=== PATIENT | female | born 1960 | race Caucasian/White ===

== ENCOUNTER → 2017-12-30 09:36 | Outpatient (CLI) | payer BC, SELFPAY ==
[2017-12-30 11:08] LABS: Add Manual Diff / Slide Review NO; Basophils Percent Auto 0.7 % (0-2); Eosinophils Percent Auto 2.5 % (2-4); Hematocrit 38.4 % (36-46); Lymphocytes Percent Auto 35.1 % (25-40); Mean Corpuscular HGB Conc 33.8 % (30-36); Mean Corpuscular Hemoglobin 31.7 PG (26-34); Mean Corpuscular Volume 93.8 fL (80-100); Neutrophils Absolute Auto 2000 /uL (3000-5900); Neutrophils Percent Auto 54.7 % (50-75); Platelet Count 223 X10^3/uL (150-400); Red Blood Cell Count 4.09 X10^6/uL (4.0-5.2); White Blood Cell Count 3.6 X10^3/uL (4.5-11.0)
[2017-12-30 11:15] LABS: Alanine Aminotransferase 23 IU/L (9-52); Albumin 4.5 g/dL (3.5-5.0); Albumin Globulin Ratio 1.6 (1.0-2.8); Alkaline Phosphatase 58 U/L (38-126); Aspartate Aminotransferase 23 IU/L (14-36); BUN Creatinine Ratio 13.8 (6-22); Bilirubin Total 0.8 mg/dL (0.2-1.3); Blood Urea Nitrogen 11 mg/dL (7-17); Calcium 9.5 mg/dL (8.4-10.2); Carbon Dioxide 30 mmol/L (22-32); Chloride 100 mmol/L (98-107); Cholesterol 228 mg/dL (140-199); Estimated Glomerular Filt Rate > 60.0 mL/min (>60); Globulin 2.8 g/dL (1.7-4.1); Glucose 94 mg/dL (70-100); HDL Cholesterol 88 mg/dL (40-60); HEMOLYSIS < 15 (0-50); LDL Cholesterol Calculated 131 mg/dL (<100); Potassium 4.1 mmol/L (3.4-5.1); Sodium 138 mmol/L (137-145); Total Protein 7.3 g/dL (6.3-8.2); Triglycerides 43 mg/dL (35-150)
[2017-12-30 11:47] LABS: TSH w/ Reflex to FT4 2.14 uIU/mL (0.47-4.68)
== END ==
PROVIDERS: Visit Provider Family Medicine
DX: D64.9 Anemia, unspecified (principal); Z13.1 Encounter for screening for diabetes mellitus; Z13.220 Encounter for screening for lipoid disorders; E03.9 Hypothyroidism, unspecified
CPT/HCPCS: 36415; 80053; 80061; 84443; 85025

== ENCOUNTER → 2018-10-06 12:34 | Outpatient (CLI) | payer BC, SELFPAY ==
[2018-10-08 19:47] LABS: ANA Screen, IFA Positive (Negative)
== END ==
PROVIDERS: Visit Provider Dermatology
DX: K13.0 Diseases of lips (principal)
CPT/HCPCS: 36415; 86038; 86235

== ENCOUNTER → 2018-10-29 12:09 | Outpatient (CLI) | payer BC, SELFPAY ==
--- NOTE | 2018-10-29 | DI.MG.S_ITS ---
BILATERAL DIGITAL SCREENING MAMMOGRAM 3D/2D WITH CAD: 10/29/2018 CLINICAL: Routine screening. Comparison is made to exams dated: 01/19/2014 mammogram, 01/08/2013 mammogram, and 01/16/2012 mammogram - [facility]. The tissue of both breasts is heterogeneously dense. This may lower the sensitivity of mammography. Current study was also evaluated with a Computer Aided Detection (CAD) system. No significant masses, calcifications, or other findings are seen in either breast. There has been no significant interval change. IMPRESSION: NEGATIVE There is no mammographic evidence of malignancy. A 1 year screening mammogram is recommended. This exam was interpreted at Station ID: [id number]. NOTE: For mammograms, a report in lay terms will be sent to the patient. Approximately 15% of breast malignancies will not be visualized mammographically. In the management of a palpable breast mass, a negative mammogram must not discourage biopsy of a clinically suspicious lesion. Electronically Signed By: Victor Hugo moore/nick:10/31/2018 06:40:18 letter sent: Normal Exam ACR BI-RADS Category 1: Negative [id number]
== END ==
PROVIDERS: Visit Provider Nurse Practitioner Family
DX: Z12.31 Encounter for screening mammogram for malignant neoplasm of breast (principal)
CPT/HCPCS: 77063; 77067

== ENCOUNTER 2019-04-05 11:28 | Emergency (ER) | payer BC, SELFPAY ==
[2019-04-05 11:55] VITALS: BP 110/70; PULSE 56; RESP 18; TEMP 36.9; O2SAT 100; BMI 21.6
--- NOTE | 2019-04-05 13:48 | ED_ITS ---
HPI - Wound/Laceration <JUWAN Longoria - Last Filed: 04/05/19 17:09> General Chief Complaint: Wound/Laceration Stated Complaint: cut finger, was on antibiotics, possible infection Time Seen by Provider: 04/05/19 13:24 Source: patient Mode of arrival: Ambulatory Limitations: no limitations History of Present Illness HPI narrative: The patient is a 59-year-old female nonsmoker with history of GERD who presents with a chief complain hand laceration. She states that this happened 9 days ago. She was concerned about infection so she saw her primary care provider who placed her on Bactroban ointment. She presents that she has some diffuse redness around her cut this morning and was concerned about infection. She denies any drainage can of fever nausea vomiting diarrhea decreased movement etc. She has not taken anything for pain. She states that her tetanus was 2 years ago so it is up-to-date. She states the initial injury was with a paring knife. She did not get evaluated to 4-5 days after the injury. Related Data Home Medications Medication Instructions Recorded Confirmed gabapentin BID #0 05/20/17 02/25/18 omega 3-zsr-csv-fish oil [Fish Oil] 1,000 mg PO #0 05/20/17 02/25/18 estradiol 0.05 mg/24 hr weekly See Rx Instructions TRANSDERMAL 12/30/17 02/25/18 transdermal patch 2XW each omeprazole 20 mg tablet,delayed 20 mg PO DAILY 12/30/17 02/25/18 release progesterone micronized 200 mg 200 mg PO BEDTIME #0 cap 12/30/17 02/25/18 capsule Previous Rx's Medication Instructions Recorded levothyroxine 50 mcg tablet 50 mcg PO QAM #30 tab 03/10/18 escitalopram oxalate 10 mg tablet 15 mg PO DAILY #45 tab 12/22/18 Allergies Allergy/AdvReac Type Severity Reaction Status Date / Time succinylcholine Allergy Unknown Verified 02/25/18 08:36 [SUCCINYLCHOLINE] Review of Systems <JUWAN Longoria - Last Filed: 04/05/19 17:09> Review of Systems Narrative: GENERAL: Denies chills, fatigue, malaise, fever, sweats. HEENT: Denies sinus pain, ear pain, sore throat, difficulty swallowing, dizziness. RESPIRATORY: Denies dyspnea, cough, wheezing, hemoptysis, sputum. CARDIOVASCULAR: Denies chest pain, palpitations, orthopnea, edema, GASTROINTESTINAL: Denies nausea, vomiting, abdominal pain, diarrhea, constipation, melena. : Denies dysuria, frequency, incontinence, hematuria, urinary retention. MUSCULOSKELETAL: See HPI SKIN: See HPI NEUROLOGIC: Denies weakness, headache, numbness, change in speech, confusion, seizures, incoordination. PSYCHIATRIC: No concerning psychosocial issues. 12 point review of systems is negative except for those stated above Patient History <JUWAN Longoria - Last Filed: 04/05/19 17:09> Medical History Abnormal Pap smear of cervix (Chronic ~1992) Anemia (Chronic ~1992) Carpal tunnel syndrome (Chronic ~2012) Chicken pox (Resolved) Chlamydia (Chronic ~1991) Chronic back pain (Chronic ~1991) Depression (Chronic ~2009) Fibroids (Chronic ~2004) GERD (gastroesophageal reflux disease) (Chronic ~1999) Hypothyroidism (Chronic ~2005) Measles (Resolved) Mumps (Resolved) Shoulder pain (Chronic ~2002) Substance abuse (Chronic ~2016) Surgical History Anesthesia (Resolved) History of carpal tunnel release (Resolved ~2015) History of carpal tunnel release (Resolved ~2012) History of knee surgery (Resolved ~2013) History of knee surgery (Resolved ~2010) History of knee surgery (Resolved ~1996) History of reconstruction of anterior cruciate ligament tear (Resolved ~1994) History of tonsillectomy (Resolved ~1989) Status post trigger finger release (Resolved ~08/2017) Surgical procedure planned (Resolved ~2014) Surgical procedure planned (Resolved ~2013) Surgical procedure planned (Resolved ~1999) Family History Father Cancer Hypertension Skin cancer Alcoholism Mother Mental health problem Osteoporosis Depression Brother Alcoholism Stroke Brother Rheumatoid arthritis Sister Obesity Sister Alcoholism Sister Osteoarthritis Sister Ulcerative colitis Osteoporosis Arthritis Grandfather Alcoholism Grandfather Lung cancer Social History marital status: number of children: 0 household members: spouse education level: college 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 HEAD: Atraumatic. Normocephalic. No temporal or scalp tenderness. EYES: Pupils equal round and reactive. Extraocular motions intact. No scleral icterus. No injection or drainage. ENT: Nose without bleeding, purulent drainage or septal hematoma. Throat without erythema, tonsillar hypertrophy or exudate. Uvula midline. Airway patent. NECK: Trachea midline. No JVD or lymphadenopathy. Supple, nontender, no meningeal signs. CARDIOVASCULAR: Regular rate and rhythm RESPIRATORY: No cough. No increased respiratory effort. No accessory muscle use. EXTREMITIES: Patient is able to flex and instead left index finger fully. Capillary refill less than 2 seconds. NEURO: AOx3. SKIN: 1 cm healing laceration on dorsal aspect of left index finger over MCP joint well-approximated. Linear. Healing well. No extending erythema. No drainage noted. Initial Vital Signs Initial Vital Signs: Vital Signs Temperature 98.4 F 04/05/19 11:55 Pulse Rate 56 L 04/05/19 11:55 Respiratory Rate 18 04/05/19 11:55 Blood Pressure 110/70 04/05/19 11:55 Pulse Oximetry 100 04/05/19 11:55 <Frankie Arango DO - Last Filed: 04/05/19 19:22> Initial Vital Signs Initial Vital Signs: Vital Signs Temperature 98.4 F 04/05/19 11:55 Pulse Rate 56 L 04/05/19 11:55 Respiratory Rate 18 04/05/19 11:55 Blood Pressure 110/70 04/05/19 11:55 Pulse Oximetry 100 04/05/19 11:55 Course <JUWAN Longoria - Last Filed: 04/05/19 17:09> Vital Signs Vital signs: Vital Signs - 8 hr 04/05/19 11:55 04/05/19 13:50 Temperature 98.4 F Pulse Rate 56 L 56 L Respiratory Rate 18 14 Blood Pressure 110/70 Pulse Oximetry 100 98 <Frankie Arango DO - Last Filed: 04/05/19 19:22> Vital Signs Vital signs: Vital Signs - 8 hr 04/05/19 11:55 04/05/19 13:50 Temperature 98.4 F Pulse Rate 56 L 56 L Respiratory Rate 18 14 Blood Pressure 110/70 Pulse Oximetry 100 98 MDM - Wound/Laceration <Ca HyltonCAMILA-BC - Last Filed: 04/05/19 17:09> MDM Narrative Medical decision making narrative: The patient is a 59-year-old female who presents with a chief complaint of a laceration to her left index finger. Happened 9 days ago and she has seen her primary care provider since. She has been using the antibiotic ointment as discussed with her PCP, but she is concerned about infection. Her exam is overall normal today, no concerning spreading erythema or drainage noted. She is neurovascularly intact. Encouraged rest ice compression elevation as well as [id number] pain medications as needed and able. Encouraged the patient to maintain follow-up with PCP as scheduled on Saturday. I did offer to do a wound culture, which the patient declined. She also states she was recently on a course of Cipro, does not want to take oral antibiotics unless absolutely necessary. I do not think she needs these at this time as I do not see any evidence of infection. She also denies any signs of systemic infection, is afebrile in the emergency department. Patient states understanding of watching for signs of infection and following up with PCP. Patient has no questions or concerns upon discharge and states understanding of return precautions as well as follow-up care. Discharge Plan Departure Patient Disposition: Home Clinical Impression: Laceration Discharge Date/Time: 04/05/19 13:50 Instructions: How to Care for a Laceration After Repair, DI for Minor Laceration Activity Restrictions/Additional Instructions: Your laceration looks like it is healing well today. Please keep it clean and dry. I suggest continuing to use the medication given to her by her primary care provider. Please use rest ice compression elevation as well as [id number] pain medications as needed and able. Please monitor for signs of wound infection such as drainage, fever, extending redness from the wound. Prescriptions: No Action omega 6-vnv-sof-fish oil [Fish Oil] 1,000 MG capsule 1,000 mg PO Qty: 0 RF: 0 gabapentin 100 MG capsule BID Qty: 0 RF: 0 levothyroxine [Synthroid] 50 mcg tablet 50 mcg PO QAM Qty: 30 RF: 1 escitalopram oxalate [Lexapro] 10 mg tablet 15 mg PO DAILY Qty: 45 RF: 5 omeprazole 20 mg tablet,delayed release (DR/EC) 20 mg PO DAILY RF: 0 progesterone micronized 200 mg capsule 200 mg PO BEDTIME Qty: 0 RF: 0 estradiol [Estradiol Transdermal Patch] 0.05 mg/24 hr patch weekly See Rx Instructions Transdermal 2XW RF: 0
[2019-04-05 13:50] VITALS: PULSE 56; RESP 14; O2SAT 98
== END 2019-04-05 13:50 | disposition home or self-care (01) ==
PROVIDERS: Emergency Provider Nurse Practitioner Family
DX: S61.211D Laceration without foreign body of left index finger without damage to nail, subsequent encounter (principal)
CPT/HCPCS: 99282; 99283

== ENCOUNTER → 2019-06-17 08:37 | Outpatient (CLI) | payer BC, SELFPAY ==
--- NOTE | 2019-06-17 | DI.RAD.S_ITS ---
PROCEDURE: FL KNEE INJECTION MR/CT LT COMPARISON: None. INDICATIONS: INTERNAL DERANGEMENT OF LEFT KNEE, suspect medial meniscal tear. FINDINGS: After obtaining informed consent the medial border of the left knee was prepared and draped in sterile fashion and anesthetized with 1% lidocaine. Utilizing sequential fluoroscopic guidance positioning of the needle tip was confirmed to be within the knee joint space from the medial approach, utilizing a small amount of water soluble non-ionic contrast injection. Thereafter standard quantity of nonbacteriostatic sterile saline with gadolinium was instilled, for MR arthrography. IMPRESSION: Successful left knee joint injection for MR arthrography. Dictated by: Vicente Hickman M.D. on 06/17/2019 at 10:10 Approved by: Vicente Hickman M.D. on 06/17/2019 at 10:13
--- NOTE | 2019-06-17 | DI.MRI.S_ITS ---
PROCEDURE: MR KNEE LT W CON INDICATIONS: INTERNAL DERANGEMENT OF LEFT KNEE TECHNIQUE: After the administration of 50 mL of dilute intra-articular Gadolinium contrast, sagittal T1 spin echo with fat saturation and PD fast spin echo with fat saturation, coronal T1 spin echo with and without fat saturation, coronal T2 fast spin echo with fat saturation, axial PD fast spin echo with fat saturation through the knee. COMPARISON: None. FINDINGS: Image quality: Excellent. Menisci: Ill-defined macerated tear of the body and posterior horn of the medial meniscus. Lateral meniscus intact. Cruciate ligaments: Status post ACL reconstruction. There is heterogeneous poorly defined appearance of the graft suggestive of partial rupture or sprain, technically age-indeterminate Posterior cruciate ligament appears intact. Medial structures: The medial collateral ligament appears intact. Semimembranosus tendon appears intact. Visualized portions of the pes anserinus tendons appear normal. No abnormal bursal fluid. Lateral structures: The lateral collateral ligament intact. Biceps femoris tendon appears intact. Popliteus tendon grossly unremarkable. Iliotibial band appears intact. Anterior structures: Quadriceps tendon intact. Medial and lateral patellofemoral ligaments intact. Patellar tendon appears intact. Hoffa's fat pad unremarkable. Bones and cartilage: No focal marrow contusion or discrete low signal fracture line. Within the medial compartment, diffuse mild partial-thickness loss of the femoral and tibial articular cartilage Within the lateral compartment, diffuse mild partial-thickness loss of the femoral and tibial articular cartilage Within the patellofemoral compartment, fissuring of the median patellar ridge. Joint space: Small 2 cm Carter's cyst. No specific evidence of intra-articular loose body. IMPRESSION: Status post ACL reconstruction although heterogeneous appearance of the graft raising possibility of partial rupture or sprain. Recommend correlation with clinical exam findings. Medial meniscal tear involving the body and posterior horn Tricompartmental degenerative joint disease. Small Carter cyst Dictated by: Bryn Dias M.D. on 06/17/2019 at 11:40 Approved by: Bryn Dias M.D. on 06/17/2019 at 17:19
== END ==
PROVIDERS: Family Provider Physical Therapist; PCP Nurse Practitioner Family; Visit Provider Orthopaedic Surgery
DX: S83.242A Other tear of medial meniscus, current injury, left knee, initial encounter (principal); M71.22 Synovial cyst of popliteal space [Baker], left knee; M17.12 Unilateral primary osteoarthritis, left knee
CPT/HCPCS: 27369; 73722; 77002

== ENCOUNTER → 2019-12-23 13:59 | Outpatient (CLI) | payer BC, SELFPAY | PROVIDERS: Family Provider Physical Therapist; PCP Nurse Practitioner Family; Visit Provider Physician Assistant | DX: R39.15 Urgency of urination (principal) | CPT/HCPCS: 87077; 87086; 87186 ==

== ENCOUNTER 2020-02-28 08:00 | Emergency (ER) | payer BC, SELFPAY ==
[2020-02-28] VITALS (11 sets, daily range): BP systolic 95–128; BP diastolic 50–59; PULSE 50–78; RESP 15; TEMP 36–39.6; O2SAT 95–99; BMI 22.1
--- NOTE | 2020-02-28 08:15 | ED_ITS ---
HPI - Abdominal Pain General Chief Complaint: Fever Stated Complaint: high temperature (104), abdominal pain Time Seen by Provider: 02/28/20 08:03 Source: patient Mode of arrival: Ambulatory Limitations: no limitations History of Present Illness HPI narrative: 60-year-old female comes emergency department with complaint 4 days and 3 days right-sided abdominal and back pain. Patient states she has had a mild headache. She denies any nasal congestion, cough, difficulties with breathing or chest pain. She has been nauseated but had any vomiting. She has been restricting her fluid intake somewhat. She states that the pain started in the right lower abdomen flank area and she thought it maybe cramping which she gets intermittently. She has not had any diarrhea or constipation. She has had normal bowel movements. She denies any vaginal bleeding or discharge. She has not had any frequency, dysuria or urgency. She states she has had some decrease in urine output but relates this to having decreased fluid intake. She has had multiple orthopedic surgeries including excision of her pubic symphysis but denies any intra-abdominal surgeries. She takes the generic version of Lexapro and Synthroid. 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 She follows with Dr. Phyllis Limon for her pcp. Related Data Home Medications Medication Instructions Recorded Confirmed gabapentin BID #0 05/20/17 12/23/19 omega 0-nez-usl-fish oil [Fish Oil] 1,000 mg PO #0 05/20/17 12/23/19 omeprazole 20 mg tablet,delayed 20 mg PO DAILY 12/30/17 12/23/19 release Previous Rx's Medication Instructions Recorded levothyroxine 50 mcg tablet 50 mcg PO QAM #30 tab 03/10/18 escitalopram oxalate 10 mg tablet 15 mg PO DAILY #45 tab 12/22/18 hydrocodone-acetaminophen [[place]] 2 tab PO Q8H PRN #10 tab 02/28/20 levofloxacin 500 mg PO Q24H 14 Days #14 tab 02/28/20 ondansetron HCl [Zofran] 4 mg PO Q6H PRN #10 tab 02/28/20 Allergies Allergy/AdvReac Type Severity Reaction Status Date / Time succinylcholine Allergy Unknown Verified 02/28/20 08:23 [SUCCINYLCHOLINE] Review of Systems Review of Systems ROS Unobtainable: All systems reviewed & are unremarkable except as noted in HPI and below Constitutional Constitutional: Reports chills, Reports fever(s), Reports headache(s) and Denies weakness ENT Ears, Nose, Mouth, and Throat: Denies dizziness, Reports headache(s), Denies nasal congestion, Denies nasal discharge, Denies neck pain, Denies sinus pain and Denies sore throat Cardiovascular Cardiovascular: Denies chest pain, Denies lightheadedness and Denies dyspnea Respiratory Respiratory: Denies chest congestion, Denies cough, Denies excessive phlegm production and Denies dyspnea Gastrointestinal Gastrointestinal: Reports abdominal pain, Denies melena, Denies bloating, Denies hematochezia, Denies change in bowel habits, Denies constipation, Denies diarrhea, Denies loose stools, Reports nausea and Denies vomiting Genitourinary Genitourinary: Reports oliguria, Denies dysuria, Denies dysuria, Reports flank pain, Denies urinary frequency, Denies urinary hesitancy and Denies urinary urgency Genitourinary: Denies urinary frequency, Denies dysuria, Denies dysuria, Reports flank pain, Denies urinary hesitancy, Denies urinary urgency and Denies vaginal discharge Comments: No vaginal bleeding Musculoskeletal Musculoskeletal: Reports back pain (Right side) and Denies neck pain Integumentary/Breasts Skin/Breast: Denies rash Neurologic Neurologic: Denies confusion, Denies dizziness, Reports headache(s) and Denies weakness Psychiatric Psychiatric: Denies confusion Patient History Medical History Abnormal Pap smear of cervix (Chronic ~1992) Anemia (Chronic ~1992) Carpal tunnel syndrome (Chronic ~2012) Chicken pox (Resolved) Chlamydia (Chronic ~1991) Chronic back pain (Chronic ~1991) Depression (Chronic ~2009) Fibroids (Chronic ~2004) GERD (gastroesophageal reflux disease) (Chronic ~1999) Hypothyroidism (Chronic ~2005) Measles (Resolved) Mumps (Resolved) Shoulder pain (Chronic ~2002) Substance abuse (Chronic ~2016) Surgical History Anesthesia (Resolved) History of carpal tunnel release (Resolved ~2015) History of carpal tunnel release (Resolved ~2012) History of knee surgery (Resolved ~2013) History of knee surgery (Resolved ~2010) History of knee surgery (Resolved ~1996) History of reconstruction of anterior cruciate ligament tear (Resolved ~1994) History of tonsillectomy (Resolved ~1989) Status post trigger finger release (Resolved ~08/2017) Surgical procedure planned (Resolved ~2014) Surgical procedure planned (Resolved ~2013) Surgical procedure planned (Resolved ~1999) Family History Father Cancer Hypertension Skin cancer Alcoholism Mother Mental health problem Osteoporosis Depression Brother Alcoholism Stroke Brother Rheumatoid arthritis Sister Obesity Sister Alcoholism Sister Osteoarthritis Sister Ulcerative colitis Osteoporosis Arthritis Grandfather Alcoholism Grandfather Lung cancer Social History marital status: number of children: 0 household members: spouse education level: college 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 HEENT: Atraumatic, pupils are equal round reactive to light, extraocular movements are intact, nares are clear, no meningeal signs HEART: Regular rate and rhythm without murmur, clicks, rubs. LUNGS:Lungs clear to auscultation, no wheezes, rales, crackles, chest moves symmetrically no tachypnea or accessory muscle use ABD:bowel sounds normal, soft, positive her right upper and lower quadrant tenderness greatest in right upper quadrant, patient also has mild tenderness on the left upper and lower quadrants, no guarding, rebound, rigidity, no masses noted, no hepatosplenomegaly :No CVA tenderness MSCL: Non-tender, no muscle atrophy, muscles strength 5/5 upper and lower extremities, full range of motion. NEURO:CN 2-12 intact, sensation normal SKIN: No rash, no petechiae. Initial Vital Signs Initial Vital Signs: Vital Signs Temperature 103.2 F H 02/28/20 08:05 Pulse Rate 78 02/28/20 08:05 Respiratory Rate 15 02/28/20 08:05 Blood Pressure 128/59 L 02/28/20 08:05 Pulse Oximetry 97 02/28/20 08:05 Scores GCS [place] coma scale eye opening: Spontaneous Baljit coma scale verbal response: Orientated [place] coma scale motor response: Obey commands [place] coma scale total score: 15 Course Orders Ordered: ED Orders 02/28/20 09:10 Urine Culture Stat Urine Microscopic Stat 02/28/20 09:25 COVID19 -ED/INPAT/OR/L&D Stat 02/28/20 09:30 Blood Culture Stat Discontinued Medications Hydrocodone Bitart/Acetaminophen ([place] 5/325) 2 tab PO NOW ONE Stop: 02/28/20 10:22 Last Admin: 02/28/20 10:27 Dose: 2 tab Documented by: CHRIS Sodium Chloride (Normal Saline 0.9%) 1,000 mls @ 1,000 mls/hr IV BOLUS ONE Stop: 02/28/20 09:16 Last Infusion: 02/28/20 11:30 Dose: 0 mls/hr Documented by: Admin: 02/28/20 08:27 Dose: 1,000 mls/hr Documented by: CHRIS Levofloxacin (Levaquin) 750 mg in 150 mls @ 100 mls/hr IV NOW ELLYN Last Admin: 02/28/20 09:55 Dose: 100 mls/hr Documented by: CHRIS Ketorolac Tromethamine (Toradol) 15 mg IV NOW ONE Stop: 02/28/20 08:27 Last Admin: 02/28/20 09:29 Dose: 15 mg Documented by: CHRIS Ondansetron HCl (Zofran) 4 mg IV NOW ONE Stop: 02/28/20 08:16 Last Admin: 02/28/20 08:27 Dose: 4 mg Documented by: CHRIS Ondansetron HCl (Zofran) 4 mg IV NOW ONE Stop: 02/28/20 11:47 Reevaluation(s) Reevaluation #1: recheck, receiving levaquin. stable vitals at this time. plan for po challenge. still has pain after toradol. given norco po. Time: 10:21 Time: 11:46 Reevaluation #3: Patient is much more comfortable at this time. Heart rate has been in the 50s, her temperature is 96? F, her blood pressure has been low but she states she typically runs low and she is feeling much better. Able tolerate p.o. challenge. Vital Signs Vital signs: Vital Signs - 8 hr 02/28/20 10:00 02/28/20 10:02 02/28/20 10:30 Temperature Pulse Rate 59 L 60 59 L Blood Pressure 104/53 L 101/55 L Pulse Oximetry 97 97 98 02/28/20 11:00 02/28/20 11:02 02/28/20 11:30 Temperature Pulse Rate 51 L 52 L 50 L Blood Pressure 98/50 L 95/53 L 97/50 L Pulse Oximetry 96 95 95 02/28/20 11:53 Temperature 96.8 F L Pulse Rate Blood Pressure Pulse Oximetry MDM - Abdominal Pain Lab Data Attestation: I reviewed the patient's lab results. Result diagrams: 02/28/20 08:18 02/28/20 08:18 Labs: Lab Results 02/28/20 02/28/20 02/28/20 Range/Units 08:18 08:18 08:18 WBC 9.5 (4.5-11.0) X10^3/uL RBC 3.80 L (4.0-5.2) X10^6/uL Hgb 11.7 L (12.0-16.0) g/dL Hct 34.3 L (36-46) % MCV 90.3 (80-100) fL MCH 30.9 (26-34) PG MCHC 34.3 (30-36) % RDW 13.1 (11.6-14.8) % Plt Count 169 (150-400) X10^3/uL Neut % (Auto) 86.6 H (50-75) % Lymph % (Auto) 4.1 L (25-40) % [place] % (Auto) 9.2 (3-14) % Eos % (Auto) 0.0 L (2-4) % Baso % (Auto) 0.1 (0-2) % Neut # (Auto) 8300 H (4136-8829) /uL Lymph # (Auto) 400 L (7941-2088) /uL [place] # (Auto) 900 (0-900) /uL Eos # (Auto) 0 (0-450) /uL Baso # (Auto) 0 (0-100) /uL Sodium 130 L (137-145) mmol/L Potassium 3.9 (3.4-5.1) mmol/L Chloride 97 L (98-107) mmol/L Carbon Dioxide 26 (22-32) mmol/L BUN 12 (7-17) mg/dL Creatinine 0.84 (0.52-1.04) mg/dL Estimated GFR > 60.0 (>60) mL/min BUN/Creatinine Ratio 14.3 (6-22) Glucose 126 H (80-110) mg/dL Lactate 0.8 (0.7-2.1) mmol/L Calcium 8.8 (8.4-10.2) mg/dL Total Bilirubin 0.8 (0.2-1.3) mg/dL AST 32 (14-36) IU/L ALT 32 (<35) IU/L Alkaline Phosphatase 83 (38-126) U/L Total Protein 7.3 (6.3-8.2) g/dL Albumin 3.9 (3.5-5.0) g/dL Globulin 3.4 (1.7-4.1) g/dL Albumin/Globulin Ratio 1.1 (1.0-2.8) Lipase 42 (23-300) U/L Procalcitonin (<0.5) ng/mL Urine RBC (0-5/HPF) Urine WBC (0-5/HPF) Ur Squamous Epith Cells (0-5/HPF) Urine Bacteria (None) Ur Culture Indicated? COVID-19 PCR (Negative) 02/28/20 02/28/20 02/28/20 Range/Units 08:18 09:10 09:25 WBC (4.5-11.0) X10^3/uL RBC (4.0-5.2) X10^6/uL Hgb (12.0-16.0) g/dL Hct (36-46) % MCV (80-100) fL MCH (26-34) PG MCHC (30-36) % RDW (11.6-14.8) % Plt Count (150-400) X10^3/uL Neut % (Auto) (50-75) % Lymph % (Auto) (25-40) % [place] % (Auto) (3-14) % Eos % (Auto) (2-4) % Baso % (Auto) (0-2) % Neut # (Auto) (5159-1750) /uL Lymph # (Auto) (6633-1256) /uL [place] # (Auto) (0-900) /uL Eos # (Auto) (0-450) /uL Baso # (Auto) (0-100) /uL Sodium (137-145) mmol/L Potassium (3.4-5.1) mmol/L Chloride (98-107) mmol/L Carbon Dioxide (22-32) mmol/L BUN (7-17) mg/dL Creatinine (0.52-1.04) mg/dL Estimated GFR (>60) mL/min BUN/Creatinine Ratio (6-22) Glucose (80-110) mg/dL Lactate (0.7-2.1) mmol/L Calcium (8.4-10.2) mg/dL Total Bilirubin (0.2-1.3) mg/dL AST (14-36) IU/L ALT (<35) IU/L Alkaline Phosphatase (38-126) U/L Total Protein (6.3-8.2) g/dL Albumin (3.5-5.0) g/dL Globulin (1.7-4.1) g/dL Albumin/Globulin Ratio (1.0-2.8) Lipase (23-300) U/L Procalcitonin 0.27 (<0.5) ng/mL Urine RBC 1-5/hpf (0-5/HPF) Urine WBC >100/hpf H (0-5/HPF) Ur Squamous Epith Cells 1-5 /hpf (0-5/HPF) Urine Bacteria Many (>30) H (None) Ur Culture Indicated? Specimen cultured COVID-19 PCR Negative (Negative) Point of care testing: Urine Dip Bedside Urine Glucose Negative Bedside Urine Bilirubin - Negative Bedside Urine Ketone +/- 5 Urine Specific [place] 1.015 Bedside Urine Occult Blood +++ Bedside Urine pH 6.0 Bedside Urine Protein ++ 100 Bedside Urine Urobilinogen +/- 1mg Bedside Urine Nitrite + Positive Bedside Urine Leukocytes - Negative Esterase Imaging Data CT scan - abdomen/pelvis: Radiologist's Impression: [address] [address] [address] Scan Report Signed Patient: Mary Oropeza MMR#: [id number] : 9Acct:[id number] Age/Sex: 60 / FDate of Service: 02/28/20 Loc: ED Accession Number: [id number] Procedure: CT abdomen pelvis w con Ordering Provider: Ca Bran D.O. PROCEDURE: CT ABDOMEN PELVIS W CON INDICATIONS: right sided abdominal pain, fever x 3-4 days TECHNIQUE: After the administration of intravenous contrast, 5 mm thick sections acquired from the diaphragm to the symphysis. 5 mm coronal and sagittal reformats were acquired. For radiation dose reduction, the following was used: automated exposure control, adjustment of mA and/or kV according to patient size. COMPARISON: None. FINDINGS: Image quality: Excellent. ABDOMEN: Lung bases: There is mild dependent atelectasis bilaterally. Heart size is normal. Solid organs: A small cyst is demonstrated within the posterior right hepatic lobe measuring up to 1.1 cm. There are additional scattered small low-density foci within the liver which are too small to characterize but statistically likely represent cysts. The gallbladder appears within normal limits without calcified gallstones. Biliary system is non-dilated. Pancreas enhances normally. No peripancreatic fat stranding or fluid collections. No pancreatic duct dilatation. The spleen is normal in size. No adrenal nodules. There is heterogeneous enhancement of the right kidney with a striated nephrogram demonstrated and areas of mild cortical edema. There is associated perinephric fat stranding and fluid without a discrete perinephric or intrarenal fluid co llection. No hydronephrosis. The left kidney demonstrates normal enhancement without perinephric stranding or hydronephrosis. The ureters are nondistended bilaterally. Peritoneum and bowel: Bowel loops demonstrate normal wall thickness and caliber. The appendix is normal in appearance. There is a small amount of free fluid in the pelvis. No free air. Nodes and vessels: No retroperitoneal or mesenteric adenopathy by size criteria. Aorta and inferior vena cava are normal in size. Miscellaneous: No ventral hernias. PELVIS: Genitourinary: The urinary bladder is nondistended with suggestion of concentric bladder wall thickening. Miscellaneous: No inguinal hernias or adenopathy. Bones: No suspicious bony lesions. No vertebral body compression fractures. IMPRESSION: 1. Heterogeneous enhancement of the right kidney with perinephric stranding consistent with pyelonephritis. No evidence of perinephric or intrarenal abscess. No hydronephrosis. 2. Concentric bladder wall thickening likely representing a cystitis. Recommend correlation with urinalysis. 3. No evidence of appendicitis. Dictated by: Uziel Ram M.D. on 02/28/2020 at 8:39 Approved by: Uziel Ram M.D. on 02/28/2020 at 8:44 [facility] Narrative Medical decision making narrative: Patient comes in complaining of flank and abdominal pain with fever. Initially blood pressure was normal range but did dr op during patient's stay which she has a is typical for her and her normal range. Her fever did resolve. She feels significantly better after Toradol followed by [place] p.o.. She is also given a dose of IV Levaquin, urinalysis showed nitrates and patient CT was consistent with pyelonephritis along with her lab work. She did not have an elevated lactate procalcitonin or signs of sepsis otherwise at this time. Patient and I discussed need for return if she is having any worsening symptoms, urine culture and blood cultures were sent and are pending. She was started on Levaquin p.o. once daily and given a prescription for [place] and Zofran. Discharge Plan Departure Patient Disposition: Home Clinical Impression: Pyelonephritis Discharge Date/Time: 02/28/20 12:02 Activity Restrictions/Additional Instructions: Follow-up with your physician in the next 2-3 days for recheck if your symptoms are not resolved or resolving. Your hemoglobin was low and showed some mild anemia I would follow-up with her primary care physician regarding this, her sodium level was also low at 130 I would follow-up with her primary care physician to have this number rechecked. Take antibiotic as prescribed until completely gone. You may take [place] 1-2 tablets every 6 hours as needed for pain. There is Tylenol with this medication so you do not wish to take more than 3000 mg of Tylenol in a 24 hour. You may take ibuprofen up to 800 mg every 8 hours as needed for pain. Also take a stool softener with the narcotic pain medication as it will constipate you. Make sure you are drinking plenty of fluids. Return to the emergency department if you are having persistent fevers greater than 100.4 F, new or increasing abdominal or back pain, lightheadedness, passing out, new chest pain or shortness of breath, persistent vomiting, black or bloody stools, difficulty or inability urinate or other new or concerning symptoms. Prescriptions: New hydrocodone-acetaminophen [[place]] 5-325 mg tablet 2 tab PO Q8H PRN (Reason: pain) Qty: 10 RF: 0 levofloxacin 500 mg tablet 500 mg PO Q24H 14 Days Qty: 14 RF: 0 ondansetron HCl [Zofran] 4 mg tablet 4 mg PO Q6H PRN (Reason: nausea and vomiting) Qty: 10 RF: 0 No Action omega 6-juu-pwu-fish oil [Fish Oil] 1,000 MG capsule 1,000 mg PO Qty: 0 RF: 0 gabapentin 100 MG capsule BID Qty: 0 RF: 0 levothyroxine [Synthroid] 50 mcg tablet 50 mcg PO QAM Qty: 30 RF: 1 escitalopram oxalate [Lexapro] 10 mg tablet 15 mg PO DAILY Qty: 45 RF: 5 omeprazole 20 mg tablet,delayed release (DR/EC) 20 mg PO DAILY RF: 0 Referrals: Phyllis Limon MD [Primary Care Provider] -
[2020-02-28] MEDS: ONDANSETRON 4 MG/2 ML INJ IV (08:27)
[2020-02-28] MEDS: SODIUM CHLORIDE 0.9% 1,000 ML 1000 ML IV (08:27)
[2020-02-28 08:29] LABS: Add Manual Diff / Slide Review NO; Basophils Absolute Auto 0 /uL (0-100); Basophils Percent Auto 0.1 % (0-2); Eosinophils Absolute Auto 0 /uL (0-450); Hematocrit 34.3 % (36-46); Hemoglobin 11.7 g/dL (12.0-16.0); Lymphocytes Absolute Auto 400 /uL (1100-4500); Lymphocytes Percent Auto 4.1 % (25-40); Mean Corpuscular HGB Conc 34.3 % (30-36); Mean Corpuscular Hemoglobin 30.9 PG (26-34); Mean Corpuscular Volume 90.3 fL (80-100); Monocytes Absolute Auto 900 /uL (0-900); Monocytes Percent Auto 9.2 % (3-14); Neutrophils Absolute Auto 8300 /uL (1500-7000); Neutrophils Percent Auto 86.6 % (50-75); Platelet Count 169 X10^3/uL (150-400); Red Cell Distribution Width 13.1 % (11.6-14.8); White Blood Cell Count 9.5 X10^3/uL (4.5-11.0)
[2020-02-28 08:42] LABS: Alanine Aminotransferase 32 IU/L (<35); Albumin 3.9 g/dL (3.5-5.0); Albumin Globulin Ratio 1.1 (1.0-2.8); Alkaline Phosphatase 83 U/L (38-126); Aspartate Aminotransferase 32 IU/L (14-36); BUN Creatinine Ratio 14.3 (6-22); Bilirubin Total 0.8 mg/dL (0.2-1.3); Blood Urea Nitrogen 12 mg/dL (7-17); Calcium 8.8 mg/dL (8.4-10.2); Carbon Dioxide 26 mmol/L (22-32); Chloride 97 mmol/L (98-107); Estimated Glomerular Filt Rate > 60.0 mL/min (>60); Globulin 3.4 g/dL (1.7-4.1); Glucose 126 mg/dL (80-110); HEMOLYSIS < 15 (0-50); Lactate (Lactic Acid) 0.8 mmol/L (0.7-2.1); Lipase 42 U/L (23-300); Potassium 3.9 mmol/L (3.4-5.1); Sodium 130 mmol/L (137-145); Total Protein 7.3 g/dL (6.3-8.2)
[2020-02-28 08:58] LABS: Procalcitonin 0.27 ng/mL (<0.5)
[2020-02-28] MEDS: KETOROLAC 60 MG/2 ML VIAL 15 MG IV (09:29)
[2020-02-28 09:45] LABS: Bacteria Urine Many (>30); RBC Urine 1-5/HPF (0-5/HPF); Squamous Epithelial Cell Urine 1-5 /HPF (0-5/HPF); WBC Urine >100/HPF (0-5/HPF)
[2020-02-28 09:46] LABS: Culture Indicated Urine Specimen Cultured
[2020-02-28 09:55] LABS: COVID19 -Nasal RAPID Negative (Negative)
[2020-02-28] MEDS: levoFLOXacin 750 MG/150 ML PIGGYBACK 100 MG IV (09:55)
[2020-02-28] MEDS: HYDROCODONE/ACET 5/325 TABLET 2 TAB PO (10:27)
[2020-02-29 00:58] LABS: Acinetobacter baumannii Not Detected (Not Detect); Enterobacteriaceae species Detected (Not Detect); Enterococcus species Not Detected (Not Detect); KPC (carbapenem-resist gene) Not Detected (Not Detect); Listeria monocytogenes Not Detected (Not Detect); Staphylococcus species Not Detected (Not Detect); Streptococcus agalactiae (Gr B Not Detected (Not Detect); Streptococcus pneumonia Not Detected (Not Detect); Streptococcus pyogenes (Gr A) Not Detected (Not Detect); Streptococcus species Not Detected (Not Detect)
[2020-02-29 01:00] LABS: Candida albicans Not Detected (Not Detect); Candida glabrata Not Detected (Not Detect); Candida krusei Not Detected (Not Detect); Candida parapsilosis Not Detected (Not Detect); Candida tropicalis Not Detected (Not Detect); E. coli Detected (Not Detect); Enterobacter cloacae complex Not Detected (Not Detect); Haemophilus influenzae Not Detected (Not Detect); Neisseria meningitidis Not Detected (Not Detect); Proteus species Not Detected (Not Detect); Pseudomonas aeruginosa Not Detected (Not Detect); Serratia marcescens Not Detected (Not Detect)
--- NOTE | 2020-02-29 10:17 | PC.NURSE ---
patient returned phone call. States she is feeling much better. advised to continue to monitor her conditions and if she feels like she is not improving she should return for reevaluation and possible admission for IV ABX per Dr Rhoades
--- NOTE | 2020-04-11 10:19 | PC.NURSE ---
Late entry: Levaquin infusion complete 1130 hrs.
== END 2020-02-28 12:02 | disposition home or self-care (01) ==
PROVIDERS: Emergency Provider Emergency Medicine; Family Provider Physical Therapist; PCP Internal Medicine
DX: N12 Tubulo-interstitial nephritis, not specified as acute or chronic (principal); R50.9 Fever, unspecified; R51.9 Headache, unspecified
CPT/HCPCS: 36415; 74177; 80053; 81003; 81015; 83605; 83690; 84145; 85025; 87040; 87077; 87086; 87150; 87186; 87205; 87635; 96365; 96366; 96375; 96376; 99284; J1885; J1956; J2405

== ENCOUNTER 2020-02-28 19:49 | Emergency (ER) | payer BC, SELFPAY ==
[2020-02-28] VITALS (10 sets, daily range): BP systolic 90–114; BP diastolic 50–59; PULSE 51–91; RESP 12–20; TEMP 37.2–39.3; O2SAT 94–98; BMI 22.1
--- NOTE | 2020-02-28 20:40 | ED_ITS ---
HPI - Recheck/Abnormal Lab/Rx General Chief Complaint: Recheck/Abnormal Lab/Rx Stated Complaint: states fever has gone up Time Seen by Provider: 02/28/20 20:40 Source: patient Mode of arrival: Ambulatory History of Present Illness HPI narrative: 60-year-old woman seen earlier today by Dr. dos santos and diagnosed with pyelonephritis. She was given fluids and IV Levaquin. Instructed to return if fevers return. Once home she had a fever in the 104.1 range continues to feel abdominal bloating and general malaise and came back for re-evaluation. She has not had much to eat because of the abdominal bloating. Otherwise symptoms are minimally changed. Related Data Home Medications Medication Instructions Recorded Confirmed gabapentin BID #0 05/20/17 12/23/19 omega 5-xns-iia-fish oil [Fish Oil] 1,000 mg PO #0 05/20/17 12/23/19 omeprazole 20 mg tablet,delayed 20 mg PO DAILY 12/30/17 12/23/19 release Previous Rx's Medication Instructions Recorded levothyroxine 50 mcg tablet 50 mcg PO QAM #30 tab 03/10/18 escitalopram oxalate 10 mg tablet 15 mg PO DAILY #45 tab 12/22/18 hydrocodone-acetaminophen [[place]] 2 tab PO Q8H PRN #10 tab 02/28/20 levofloxacin 500 mg PO Q24H 14 Days #14 tab 02/28/20 ondansetron HCl [Zofran] 4 mg PO Q6H PRN #10 tab 02/28/20 Allergies Allergy/AdvReac Type Severity Reaction Status Date / Time succinylcholine Allergy Unknown Verified 02/28/20 08:23 [SUCCINYLCHOLINE] Review of Systems Review of Systems Narrative: Remainder of review of systems including constitutional, ENT, cardiovascular, respiratory, GI, , musculoskeletal, skin, neurologic and psych iatric systems reviewed and are unremarkable except as noted in HPI. Patient History Medical History Abnormal Pap smear of cervix (Chronic ~1992) Anemia (Chronic ~1992) Carpal tunnel syndrome (Chronic ~2012) Chicken pox (Resolved) Chlamydia (Chronic ~1991) Chronic back pain (Chronic ~1991) Depression (Chronic ~2009) Fibroids (Chronic ~2004) GERD (gastroesophageal reflux disease) (Chronic ~1999) Hypothyroidism (Chronic ~2005) Measles (Resolved) Mumps (Resolved) Shoulder pain (Chronic ~2002) Substance abuse (Chronic ~2016) Surgical History Anesthesia (Resolved) History of carpal tunnel release (Resolved ~2015) History of carpal tunnel release (Resolved ~2012) History of knee surgery (Resolved ~2013) History of knee surgery (Resolved ~2010) History of knee surgery (Resolved ~1996) History of reconstruction of anterior cruciate ligament tear (Resolved ~1994) History of tonsillectomy (Resolved ~1989) Status post trigger finger release (Resolved ~08/2017) Surgical procedure planned (Resolved ~2014) Surgical procedure planned (Resolved ~2013) Surgical procedure planned (Resolved ~1999) Family History Father Cancer Hypertension Skin cancer Alcoholism Mother Mental health problem Osteoporosis Depression Brother Alcoholism Stroke Brother Rheumatoid arthritis Sister Obesity Sister Alcoholism Sister Osteoarthritis Sister Ulcerative colitis Osteoporosis Arthritis Grandfather Alcoholism Grandfather Lung cancer Social History marital status: number of children: 0 household members: spouse education level: college 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 Able to give a complete and coherent history. Well-nourished well-developed HEENT: Dry mucous membranes, normal sclera with reactive pupils, Neck: No JVD, supple Respiratory: Lungs are clear to auscultation, no wheezing no rales no rhonchi. Full and symmetrical air movement Cardiac: Regular rate and rhythm no murmurs no bruits Abdomen: Soft nontender good bowel tones, no flank pain Extremities: No trauma, well perfused Initial Vital Signs Initial Vital Signs: Vital Signs Temperature 102.7 F H 02/28/20 19:53 Pulse Rate 91 H 02/28/20 19:53 Respiratory Rate 20 02/28/20 19:53 Blood Pressure 114/54 L 02/28/20 19:53 Pulse Oximetry 96 02/28/20 19:53 Course Orders Ordered: ED Orders 02/28/20 21:05 Complete Blood Count AUTO DIFF Stat Lactate (Lactic Acid) Stat Discontinued Medications Acetaminophen (Tylenol) 975 mg PO NOW ONE Stop: 02/28/20 20:47 Last Admin: 02/28/20 20:56 Dose: 975 mg Documented by: TAWNY Sodium Chloride (Normal Saline 0.9%) 1,000 mls @ 1,000 mls/hr IV BOLUS ONE Stop: 02/28/20 21:45 Last Admin: 02/28/20 20:57 Dose: 1,000 mls/hr Documented by: TAWNY Ketorolac Tromethamine (Toradol) 15 mg IV NOW ONE Stop: 02/28/20 22:02 Vital Signs Vital signs: Vital Signs - 8 hr 02/28/20 19:53 02/28/20 20:56 02/28/20 21:10 Temperature 102.7 F H 102 F H Pulse Rate 91 H 58 L Respiratory Rate 20 Blood Pressure 114/54 L Pulse Oximetry 96 96 02/28/20 21:25 02/28/20 21:26 Temperature Pulse Rate 58 L Respiratory Rate Blood Pressure 94/52 L Pulse Oximetry 95 MDM - Recheck/Abnormal Lab/Rx Medical Records Attestation: I reviewed the patient's medical records. Lab Data Attestation: I reviewed the patient's lab results. Result diagrams: 02/28/20 21:05 Labs: Lab Results 02/28/20 02/28/20 Range/Units 21:05 21:05 WBC 9.2 (4.5-11.0) X10^3/uL RBC 3.46 L (4.0-5.2) X10^6/uL Hgb 10.6 L (12.0-16.0) g/dL Hct 31.4 L (36-46) % MCV 90.7 (80-100) fL MCH 30.8 (26-34) PG MCHC 33.9 (30-36) % RDW 13.4 (11.6-14.8) % Plt Count 157 (150-400) X10^3/uL Neut % (Auto) 84.3 H (50-75) % Lymph % (Auto) 4.2 L (25-40) % Holt % (Auto) 11.3 (3-14) % Eos % (Auto) 0.1 L (2-4) % Baso % (Auto) 0.1 (0-2) % Neut # (Auto) 7700 H (6576-8509) /uL Lymph # (Auto) 400 L (3881-7602) /uL Holt # (Auto) 1000 H (0-900) /uL Eos # (Auto) 0 (0-450) /uL Baso # (Auto) 0 (0-100) /uL Lactate 0.7 (0.7-2.1) mmol/L MDM Narrative Medical decision making narrative: 60-year-old woman with pyelonephritis IV Levaquin given earlier return to the emergency room when fever of 104 noted at home. Repeat lactic acid in CBC is reassuring. She was given an additional L of fluid here in the emergency department as well as IV Toradol. At this point she is on appropriate treatment without signs of worsening infection or sepsis and she is safe for home discharge. Questions are answered and findings are reviewed with patient and her . Discharge Plan Departure Patient Disposition: Home Clinical Impression: Pyelonephritis Instructions: DI for Kidney Infection Activity Restrictions/Additional Instructions: Thank you for coming back Your repeat blood work was very reassuring. There is no sign of worsening infec tion or developing sepsis. With kidney infections it sometimes takes a couple of days for your fever to trend down and for the pain to completely improve. You are given the perfect antibiotic to get started and do not need your 1st oral dose until tomorrow. Using 400 mg of ibuprofen (2 [id number] pills) and 1 Tylenol every 6 hours can be very helpful in controlling pain from the kidney infection and in helping control the fever. If after a couple of days you clearly are not improving, you are welcome to return to the emergency room and I am happy to re-evaluate. I hope you heal quickly Prescriptions: No Action omega 6-usy-yat-fish oil [Fish Oil] 1,000 MG capsule 1,000 mg PO Qty: 0 RF: 0 gabapentin 100 MG capsule BID Qty: 0 RF: 0 levothyroxine [Synthroid] 50 mcg tablet 50 mcg PO QAM Qty: 30 RF: 1 escitalopram oxalate [Lexapro] 10 mg tablet 15 mg PO DAILY Qty: 45 RF: 5 omeprazole 20 mg tablet,delayed release (DR/EC) 20 mg PO DAILY RF: 0 hydrocodone-acetaminophen [[place]] 5-325 mg tablet 2 tab PO Q8H PRN (Reason: pain) Qty: 10 RF: 0 levofloxacin 500 mg tablet 500 mg PO Q24H 14 Days Qty: 14 RF: 0 ondansetron HCl [Zofran] 4 mg tablet 4 mg PO Q6H PRN (Reason: nausea and vomiting) Qty: 10 RF: 0 Referrals: Phyllis Limon MD [Primary Care Provider] -
[2020-02-28] MEDS: ACETAMINOPHEN 325 MG TABLET 975 MG PO (20:56)
[2020-02-28] MEDS: SODIUM CHLORIDE 0.9% 1,000 ML 1000 ML IV (20:57)
[2020-02-28 21:26] LABS: Add Manual Diff / Slide Review NO; Basophils Absolute Auto 0 /uL (0-100); Basophils Percent Auto 0.1 % (0-2); Eosinophils Absolute Auto 0 /uL (0-450); Eosinophils Percent Auto 0.1 % (2-4); Hematocrit 31.4 % (36-46); Hemoglobin 10.6 g/dL (12.0-16.0); Lymphocytes Absolute Auto 400 /uL (1100-4500); Lymphocytes Percent Auto 4.2 % (25-40); Mean Corpuscular HGB Conc 33.9 % (30-36); Mean Corpuscular Hemoglobin 30.8 PG (26-34); Mean Corpuscular Volume 90.7 fL (80-100); Monocytes Absolute Auto 1000 /uL (0-900); Monocytes Percent Auto 11.3 % (3-14); Neutrophils Absolute Auto 7700 /uL (1500-7000); Neutrophils Percent Auto 84.3 % (50-75); Platelet Count 157 X10^3/uL (150-400); Red Blood Cell Count 3.46 X10^6/uL (4.0-5.2); Red Cell Distribution Width 13.4 % (11.6-14.8); White Blood Cell Count 9.2 X10^3/uL (4.5-11.0)
[2020-02-28 21:46] LABS: Lactate (Lactic Acid) 0.7 mmol/L (0.7-2.1)
[2020-02-28] MEDS: KETOROLAC 60 MG/2 ML VIAL 15 MG IV (22:12)
== END 2020-02-28 22:35 | disposition home or self-care (01) ==
PROVIDERS: Emergency Provider Emergency Medicine; Family Provider Physical Therapist; PCP Internal Medicine
DX: N12 Tubulo-interstitial nephritis, not specified as acute or chronic (principal); R50.9 Fever, unspecified
CPT/HCPCS: 36415; 83605; 85025; J1885

== ENCOUNTER → 2020-03-08 13:29 | Outpatient (CLI) | payer BC, SELFPAY ==
[2020-03-08 15:54] LABS: BUN Creatinine Ratio 16.4 (6-22); Blood Urea Nitrogen 11 mg/dL (7-17); Calcium 9.5 mg/dL (8.4-10.2); Carbon Dioxide 36 mmol/L (22-32); Chloride 100 mmol/L (98-107); Estimated Glomerular Filt Rate > 60.0 mL/min (>60); Glucose 87 mg/dL (80-110); HEMOLYSIS < 15 (0-50); Hematocrit 35.6 % (36-46); Hemoglobin 12.1 g/dL (12.0-16.0); Iron 73 ug/dL (37-170); Lactate Dehydrogenase 518 U/L (313-618); Mean Corpuscular HGB Conc 33.9 % (30-36); Mean Corpuscular Volume 91.5 fL (80-100); Platelet Count 623 X10^3/uL (150-400); Potassium 3.9 mmol/L (3.4-5.1); Red Blood Cell Count 3.89 X10^6/uL (4.0-5.2); Sodium 141 mmol/L (137-145); White Blood Cell Count 6.7 X10^3/uL (4.5-11.0)
[2020-03-08 15:56] LABS: Reticulocyte Count, Percent 1.4 % (1.06-2.63)
[2020-03-08 16:07] LABS: Percent Iron Saturation 26 % (15-50); Total Iron Binding Capacity 280 ug/dL (265-497); Transferrin 225 mg/dL (206-381)
[2020-03-08 16:28] LABS: TSH w/ Reflex to FT4 2.01 uIU/mL (0.47-4.68)
[2020-03-08 16:42] LABS: Neutrophils Absolute Manual 4422 /uL (3000-5900); Platelet Estimate Increased on smear; RBC Morphology Normal Morphology; Total Cells Counted 100
[2020-03-08 17:00] LABS: Folate > 20.0 ng/mL (2.76-20.0)
[2020-03-08 17:30] LABS: Vitamin B12 781 pg/mL (239-931)
[2020-03-09 04:36] LABS: Haptoglobin 370 mg/dL (37-355)
[2020-03-09 10:41] LABS: Osmolality Urine 120 mOsmol/kg (.); Osmolality, Serum 291 mOsmol/kg (280-301)
== END ==
PROVIDERS: Family Provider Physical Therapist; PCP Internal Medicine; Referring Provider Internal Medicine; Visit Provider Internal Medicine
DX: R51.9 Headache, unspecified (principal); E87.1 Hypo-osmolality and hyponatremia; D64.9 Anemia, unspecified; R53.83 Other fatigue
CPT/HCPCS: 36415; 80048; 82607; 82746; 83010; 83540; 83550; 83615; 83930; 83935; 84443; 85025; 85045

== ENCOUNTER → 2020-03-10 13:16 | Outpatient (CLI) | payer BC, SELFPAY ==
[2020-03-10 13:44] LABS: Occult Blood 1 Negative (Negative); Occult Blood 2 Negative (Negative); Occult Blood 3 Negative (Negative); Sample 2 time UNKOWN
== END ==
PROVIDERS: Family Provider Physical Therapist; PCP Internal Medicine; Referring Provider Internal Medicine; Visit Provider Internal Medicine
DX: D64.9 Anemia, unspecified (principal)
CPT/HCPCS: 82270

== ENCOUNTER → 2020-05-06 08:24 | Outpatient (CLI) | payer BC, SELFPAY ==
--- NOTE | 2020-05-06 | DI.MRI.S_ITS ---
PROCEDURE: MR SHOULDER RT W CON INDICATIONS: R/O labral tear; S/P tenotomy TECHNIQUE: After the administration of 12 mL of dilute intra-articular Gadolinium contrast, oblique coronal T1 and T2 spin echo with fat saturation, oblique sagittal T1 spin echo with and without fat saturation, oblique sagittal T2 fast spin echo with fat saturation, axial T1 spin echo with fat saturation through the shoulder. COMPARISON: None. FINDINGS: Image quality: Excellent. Rotator cuff: Tendinosis and low-grade articular and bursal surface partial thickness tear involving distal supraspinatus and infraspinatus at their insertion on the humeral head is seen extending to musculotendinous junction. No full-thickness rotator cuff tendon rupture. Distal subscapularis tendinosis is seen. No rotator cuff muscle atrophy on sagittal images. Bones and bursae: No bone marrow contusions or fractures. Moderate acromioclavicular joint osteoarthritis is seen with downward osteophyte formation depressing the musculotendinous junction of supraspinatus. The acromion demonstrates conventional anatomy, without an os acromiale. Capsule and soft tissues: There is focal superior anterior labral tear at 12 to 1 o'clock position. The glenohumeral ligaments appear intact. The long head of the biceps tendinosis and low-grade partial-thickness tear is also noted. The rotator interval appears normal, without fibrosis. The coracohumeral ligament is of normal thickness. No intra-articular bodies. IMPRESSION: 1. Suggestion of focal superior anterior labral tear at 12 to 1 o'clock position. 2. Distal supraspinatus and infraspinatus tendinosis and low-grade articular and bursal surface partial thickness tear. No full-thickness rotator cuff tendon rupture. 3. Moderate acromioclavicular joint osteoarthritis. 4. Proximal intra-articular portion of long head of biceps tendinosis. Dictated by: Jose Golden M.D. on 05/06/2020 at 10:07 Approved by: Jose Golden M.D. on 05/06/2020 at 10:09
--- NOTE | 2020-05-06 | DI.RAD.S_ITS ---
PROCEDURE: FL SHOULDER INJECTION MR/CT RT INDICATIONS: R/O labral tear; S/P tenotomy COMPARISON: X-ray right shoulder, 3 views, , 04/27/2020. TECHNIQUE: The indications, alternatives, benefits, risks, and complications of the procedure were explained to the patient. Written informed consent was obtained and placed in the chart. The shoulder was examined fluoroscopically and a site for needle placement chosen for entry into the glenohumeral joint from an anterior approach. The skin was prepped and draped in a sterile fashion, and 1% lidocaine infiltrated from skin down to joint capsule. A spinal needle was inserted into the glenohumeral joint, and a small amount of iodinated contrast media injected to confirm intra-articular placement of the needle tip. This was followed by approximately 12 mL dilute solution of a gadolinium containing MR contrast agent. The needle was removed and a dressing was applied. The patient was given postprocedural instructions and sent to the MR suite for MR imaging. FINDINGS: A single fluoroscopic spot image demonstrates intra-articular location of injected iodinated contrast. IMPRESSION: Successful fluoroscopically guided administration of dilute Gadolinium solution into the shoulder joint for MR arthrogram. Dictated by: Bouchra Vidal M.D. on 05/06/2020 at 10:15 Approved by: Bouchra Vidal M.D. on 05/06/2020 at 10:16
== END ==
PROVIDERS: Family Provider Physical Therapist; PCP Internal Medicine; Referring Provider Internal Medicine; Visit Provider Orthopaedic Surgery
DX: M24.811 Other specific joint derangements of right shoulder, not elsewhere classified (principal); M75.111 Incomplete rotator cuff tear or rupture of right shoulder, not specified as traumatic; M19.011 Primary osteoarthritis, right shoulder; S46.111A Strain of muscle, fascia and tendon of long head of biceps, right arm, initial encounter
CPT/HCPCS: 23350; 73222; 77002

== ENCOUNTER → 2020-08-05 09:16 | Outpatient (CLI) | payer BC, SELFPAY ==
[2020-08-05 10:25] LABS: Add Manual Diff / Slide Review NO; Basophils Absolute Auto 0 /uL (0-100); Basophils Percent Auto 0.8 % (0-2); Eosinophils Absolute Auto 200 /uL (0-450); Eosinophils Percent Auto 4.6 % (2-4); Hematocrit 36.2 % (36-46); Hemoglobin 12.3 g/dL (12.0-16.0); Lymphocytes Absolute Auto 1200 /uL (1100-4500); Lymphocytes Percent Auto 30.6 % (25-40); Mean Corpuscular HGB Conc 33.9 % (30-36); Mean Corpuscular Hemoglobin 31.1 PG (26-34); Mean Corpuscular Volume 91.6 fL (80-100); Monocytes Absolute Auto 400 /uL (0-900); Monocytes Percent Auto 8.6 % (3-14); Neutrophils Absolute Auto 2300 /uL (1500-7000); Neutrophils Percent Auto 55.4 % (50-75); Platelet Count 204 X10^3/uL (150-400); Red Blood Cell Count 3.95 X10^6/uL (4.0-5.2); Red Cell Distribution Width 13.8 % (11.6-14.8); White Blood Cell Count 4.1 X10^3/uL (4.5-11.0)
[2020-08-05 10:28] LABS: Alanine Aminotransferase 19 IU/L (<35); Albumin 4.5 g/dL (3.5-5.0); Albumin Globulin Ratio 1.9 (1.0-2.8); Alkaline Phosphatase 74 U/L (38-126); Aspartate Aminotransferase 34 IU/L (14-36); BUN Creatinine Ratio 22.5 (6-22); Bilirubin Total 0.4 mg/dL (0.2-1.3); Blood Urea Nitrogen 16 mg/dL (7-17); Calcium 9.6 mg/dL (8.4-10.2); Carbon Dioxide 29 mmol/L (22-32); Chloride 103 mmol/L (98-107); Estimated Glomerular Filt Rate > 60.0 mL/min (>60); Globulin 2.4 g/dL (1.7-4.1); Glucose 89 mg/dL (80-110); HEMOLYSIS < 15 (0-50); Potassium 4.2 mmol/L (3.4-5.1); Sodium 140 mmol/L (137-145); Total Protein 6.9 g/dL (6.3-8.2)
[2020-08-05 10:56] LABS: TSH w/ Reflex to FT4 1.42 uIU/mL (0.47-4.68)
== END ==
PROVIDERS: Family Provider Physical Therapist; PCP Family Medicine; Referring Provider Family Medicine; Visit Provider Family Medicine
DX: R53.83 Other fatigue (principal)
CPT/HCPCS: 36415; 80053; 83520; 84443; 85025

== ENCOUNTER → 2020-08-22 13:47 | Outpatient (CLI) | payer BC, SELFPAY ==
[2020-08-22 13:52] LABS: Bacteria Urine None Seen
[2020-08-22 14:43] LABS: Appearance Urine UA CLEAR; Bilirubin Urine UA NEGATIVE (NEGATIVE); Color Urine UA YELLOW; Glucose Urine UA NEGATIVE (Negative); Ketones Urine UA NEGATIVE (NEGATIVE); Leukocyte Esterase Urine UA 2+ (NEGATIVE); Nitrite Urine UA NEGATIVE (Negative); Occult Blood Urine UA TRACE-LYSED (Negative); Protein Urine UA NEGATIVE (Negative); Specific Gravity Urine UA <=1.005 (1.000-1.035); Urobilinogen Urine UA 0.2 E.U./dL (0.2)
[2020-08-22 15:06] LABS: Culture Indicated Urine Specimen Cultured; RBC Urine 0-1/HPF (0-5/HPF); WBC Urine 10-30/HPF (0-5/HPF)
== END ==
PROVIDERS: Family Provider Physical Therapist; PCP Family Medicine; Referring Provider Family Medicine; Visit Provider Family Medicine
DX: R35.0 Frequency of micturition (principal); R30.0 Dysuria; R39.15 Urgency of urination
CPT/HCPCS: 81001; 87077; 87086; 87186

== ENCOUNTER → 2020-09-27 12:25 | Outpatient (CLI) | payer BC, SELFPAY ==
[2020-09-27 12:28] LABS: WBC Urine None Seen (0-5/HPF)
[2020-09-27 13:07] LABS: Appearance Urine UA CLEAR; Bilirubin Urine UA NEGATIVE (NEGATIVE); Color Urine UA YELLOW; Glucose Urine UA NEGATIVE (Negative); Ketones Urine UA NEGATIVE (NEGATIVE); Leukocyte Esterase Urine UA NEGATIVE (NEGATIVE); Nitrite Urine UA NEGATIVE (Negative); Occult Blood Urine UA TRACE-INTACT (Negative); Protein Urine UA NEGATIVE (Negative); Specific Gravity Urine UA <=1.005 (1.000-1.035); Urobilinogen Urine UA 0.2 E.U./dL (0.2)
[2020-09-27 13:28] LABS: Bacteria Urine Occasional (0-1); Culture Indicated Urine Cult Not Indicated; RBC Urine 0-1/HPF (0-5/HPF)
== END ==
PROVIDERS: Family Provider Physical Therapist; PCP Family Medicine; Referring Provider Family Medicine; Visit Provider Family Medicine
DX: N30.00 Acute cystitis without hematuria (principal)
CPT/HCPCS: 81001

== ENCOUNTER 2021-01-23 08:45 | Emergency (ER) | payer BC, SELFPAY ==
[2021-01-23 09:00] VITALS: BP 125/69; PULSE 51; RESP 16; TEMP 36.7; O2SAT 100; BMI 22.1
--- NOTE | 2021-01-23 09:21 | ED.URI ---
HPI - URI/Sore Throat General Chief Complaint: Upper Respiratory Symptoms Stated Complaint: Nausea, Heavy chest, sore throat, coughing Time Seen by Provider: 01/23/21 08:53 Source: patient Mode of arrival: Ambulatory History of Present Illness HPI Narrative: Patient is a 61-year-old female history of hypothyroid currently not vaccinated for COVID presenting for symptoms concerning for COVID. She has cough congestion sore throat ongoing for the last 3 days. She says that she has had sore throat in the past it does not last for 3 days she overall feels tired. She overall feels like she has chest congestion. No fever. She was tired yesterday and slept most of the day. Related Data Previous Rx's Medication Instructions Recorded sulfamethoxazole 800 1 tab PO BID #10 tab 08/23/20 mg-trimethoprim 160 mg tablet escitalopram oxalate 10 mg tablet See Rx Instructions .ROUTE 11/22/20 .COMPLEX #135 tab levothyroxine 50 mcg tablet 50 mcg PO DAILY #90 tab 11/25/20 (Synthroid) Allergies Allergy/AdvReac Type Severity Reaction Status Date / Time succinylcholine Allergy Unknown Verified 02/28/20 08:23 [SUCCINYLCHOLINE] Review of Systems Review of Systems Narrative: GENERAL: + fatigue Denies chills,fever HEENT: See HPI RESPIRATORY:+ chest congestion Denies dyspnea, cough, wheezing CARDIOVASCULAR: Denies chest pain, palpitations GASTROINTESTINAL: Denies nausea, vomiting MUSCULOSKELETAL: Denies extremity pain, injury SKIN: No rash, no laceration, no pruritus NEUROLOGIC: Denies weakness, dizziness, headache, numbness 8 point review of systems is negative except for those stated above and HPI Patient History Medical History (Updated 01/23/21 @ 18:37 by Jayde Mustafa DO) Abnormal Pap smear of cervix (~1992) Anemia (~1992) Carpal tunnel syndrome (~2012) Chicken pox Chlamydia (~1991) Chronic back pain (~1991) Depression (~2009) Fibroids (~2004) GERD (gastroesophageal reflux disease) (~1999) Hypothyroidism (~2005) Measles Mumps Shoulder pain (~2002) Substance abuse (~2016) Surgical History Anesthesia History of carpal tunnel release (~2015) History of carpal tunnel release (~2012) History of knee surgery (~2013) History of knee surgery (~2010) History of knee surgery (~1996) History of reconstruction of anterior cruciate ligament tear (~1994) History of tonsillectomy (~1989) Status post trigger finger release (~08/2017) Surgical procedure planned (~2014) Surgical procedure planned (~2013) Surgical procedure planned (~1999) Family History Father Cancer Hypertension Skin cancer Alcoholism Mother Mental health problem Osteoporosis Depression Brother Alcoholism Stroke Brother Rheumatoid arthritis Sister Obesity Sister Alcoholism Sister Osteoarthritis Sister Ulcerative colitis Osteoporosis Arthritis Grandfather Alcoholism Grandfather Lung cancer Social History marital status: number of children: 0 household members: spouse education level: college 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 HEENT: Head atraumatic,EOMI, pupils reactive, face symmetric, moist mucous membranes PHARYNX: No erythema, no tonsillar exudate, no cervical lymphadenopathy CARDIOVASCULAR: Regular rate and rhythm without murmurs, rubs or gallops. RESPIRATORY: Breath sounds equal bilaterally, no wheezes rales or rhonchi.s EXTREMITIES: Normal range of motion, no clubbing or edema. Neurovascularly intact NEUROLOGICAL: Alert and oriented x4. SKIN: Warm, dry, no laceration, no petechiae, no rashes or lesions. Course Orders Ordered: ED Orders 01/23/21 08:50 COVID19 -Nasal swab/Pre-Proc Stat Vital Signs Vital signs: Vital Signs - 8 hr 01/23/21 09:00 Temperature 98.1 F Pulse Rate 51 L Respiratory Rate 16 Blood Pressure 125/69 Pulse Oximetry 100 MDM - URI/Sore Throat Lab Data Labs: Lab Results 01/23/21 Range/Units 08:50 SARS-CoV-2 (PCR) Negative (Negative) [facility] Narrative Medical decision making narrative: Patient does have upper respiratory like symptoms possible COVID. However COVID test today is negative only 3 days into disease process. Discussed with her need for repeat testing in quarantine until then. Offered to answer any question she had about the vaccine but she did not have any. Discharge Plan Departure Patient Disposition: Home Clinical Impression: Upper respiratory infection Instructions: DI for COVID-19 (Suspected or Confirmed ), Can COVID-19 be prevented? Activity Restrictions/Additional Instructions: At this time your COVID test is negative However you are early in her course of symptoms and I recommend repeat testing in about 3-5 days. Please follow-up with her primary care provider and 3-5 days Return to emergency department if you should have any of the symptoms below or any new or worsening symptoms * if you have not yet been vaccinated is still recommended and encouraged that you do so once your infection has passed At home: -Monitor oxygen with pulse oximeter. -Wash hands frequently. -Stay isolated at home please follow the isolation instructions below. -Increase fluid intake. -you may take Tylenol as directed if needed for pain or fever Emergency warning signs for COVID-19: - Difficulty breathing or shortness of breath, oxygen less than 90% - Persistent pain or pressure in the chest - New confusion or inability to arouse - Bluish lips or face CDC Guidelines for home isolation: - Stay away from others - Limit contact with pets and animals: If you must care for a pet, wash your hands before and after interacting with them - Wear a mask while in public all places - Cover your mouth and nose with a tissue when you cough or sneeze. Dispose of tissues in a lined trash can and wash your hands immediately with soap and water for at least 20 seconds. If soap and water are not available, clean hands with alcohol-based hand router machine operator that contains at least 60% alcohol. - Clean your hands often with soap and water for at least 20 seconds - Avoid touching your eyes, nose and mouth with unwashed hands - Do not share dishes, drinking glasses, cups, eating utensils, towels, or bedding with other people in your home. After using these items, wash them thoroughly with soap and water or put in the control systems engineer. - Clean high-touch surfaces in your isolation area (?sick room? and bathroom) every day; let a caregiver clean and disinfect high-touch surfaces in other areas of the home. Clean the area or item with soap and water or another detergent if it is dirty. Then, use a household disinfectant. Prescriptions: No Action sulfamethoxazole-trimethoprim 800-160 mg tablet 1 tab PO BID Qty: 10 RF: 0 escitalopram oxalate 10 mg tablet See Rx Instructions .ROUTE .COMPLEX Qty: 135 RF: 2 levothyroxine [Synthroid] 50 mcg tablet 50 mcg PO DAILY Qty: 90 RF: 3 Referrals: Rupali Villegas DO [Primary Care Provider] -
[2021-01-23 09:39] LABS: COVID19 -Nasal RAPID Negative (Negative)
[2021-01-23 10:11] VITALS: BP 127/67; PULSE 54; RESP 14; O2SAT 100
== END 2021-01-23 10:11 | disposition home or self-care (01) ==
PROVIDERS: Emergency Provider Emergency Medicine; Family Provider Physical Therapist; PCP Family Medicine
DX: J06.9 Acute upper respiratory infection, unspecified (principal); Z20.822 Contact with and (suspected) exposure to COVID-19
CPT/HCPCS: 87635; 99281; 99282; C9803

== ENCOUNTER → 2021-06-08 16:01 | Outpatient (CLI) | payer BC, SELFPAY ==
--- NOTE | 2021-06-08 16:04 | DI.RAD.S_ITS ---
PROCEDURE: XR CERVICAL SPINE 2V OR 3V INDICATIONS: left C8 radiculopathy TECHNIQUE: 3 view(s) of the cervical spine were acquired. COMPARISON: None. FINDINGS: Bones: No fractures or dislocations to the T1 level. The lateral masses of C1 appear intact on the odontoid view. No suspicious bony lesions. Loss of lordosis which could be related to muscle spasm, rigidity or simply positional. Multilevel disc degeneration, severe at the C4-C5, C5-C6 and C6-C7 levels. Trace retrolisthesis C4-C5. Mild multilevel mid and lower cervical spine facet joint arthropathy and uncovertebral hypertrophy. Soft tissues: No prevertebral soft tissue swelling. IMPRESSION: Loss of lordosis and multilevel spondylosis. Dictated by: Benny Akins [facility] Interpreted: Lydia Benitez MD on 06/08/2021 at 17:18 Transcribed by: RYAN on 06/08/2021 at 17:19 Approved by: Lydia Benitez M.D. on 06/09/2021 at 9:16
== END ==
PROVIDERS: Family Provider Physical Therapist; PCP Family Medicine; Referring Provider Family Medicine; Visit Provider Family Medicine
DX: M47.22 Other spondylosis with radiculopathy, cervical region (principal)
CPT/HCPCS: 72040

== ENCOUNTER → 2021-09-28 07:03 | Outpatient (CLI) | payer BC, SELFPAY ==
[2021-09-28 08:50] LABS: Add Manual Diff / Slide Review NO; Basophils Absolute Auto 0 /uL (0-100); Basophils Percent Auto 0.6 % (0-2); Eosinophils Absolute Auto 100 /uL (0-450); Eosinophils Percent Auto 3.1 % (2-4); Hematocrit 37.9 % (36-46); Hemoglobin 12.6 g/dL (12.0-16.0); Lymphocytes Absolute Auto 1200 /uL (1100-4500); Lymphocytes Percent Auto 29.8 % (25-40); Mean Corpuscular HGB Conc 33.1 % (30-36); Mean Corpuscular Hemoglobin 30.4 PG (26-34); Mean Corpuscular Volume 91.7 fL (80-100); Monocytes Absolute Auto 400 /uL (0-900); Monocytes Percent Auto 8.6 % (3-14); Neutrophils Absolute Auto 2400 /uL (1500-7000); Neutrophils Percent Auto 57.9 % (50-75); Platelet Count 217 X10^3/uL (150-400); Red Blood Cell Count 4.13 X10^6/uL (4.0-5.2); Red Cell Distribution Width 13.4 % (11.6-14.8); White Blood Cell Count 4.2 X10^3/uL (4.5-11.0)
[2021-09-28 08:59] LABS: Hemoglobin A1C% w Est Avg Glu 5.7 % (4.0-6.0)
[2021-09-28 09:21] LABS: Alanine Aminotransferase 15 IU/L (<35); Albumin 4.4 g/dL (3.5-5.0); Albumin Globulin Ratio 1.8 (1.0-2.8); Alkaline Phosphatase 81 U/L (38-126); Aspartate Aminotransferase 30 IU/L (14-36); BUN Creatinine Ratio 18.3 (6-22); Bilirubin Total 0.5 mg/dL (0.2-1.3); Blood Urea Nitrogen 13 mg/dL (7-17); Calcium 9.2 mg/dL (8.4-10.2); Carbon Dioxide 32 mmol/L (22-32); Chloride 102 mmol/L (98-107); Cholesterol 246 mg/dL (140-199); Estimated Glomerular Filt Rate > 60 mL/min (>60); Globulin 2.4 g/dL (1.7-4.1); Glucose 93 mg/dL (80-110); HDL Cholesterol 104 mg/dL (40-60); HEMOLYSIS < 15 (0-50); LDL Cholesterol Calculated 136 mg/dL (<100); Potassium 4.1 mmol/L (3.4-5.1); Sodium 138 mmol/L (137-145); Total Protein 6.8 g/dL (6.3-8.2); Triglycerides 31 mg/dL (35-150)
[2021-09-28 09:54] LABS: Ferritin 42 ng/mL (11-264)
== END ==
PROVIDERS: Family Provider Physical Therapist; PCP Family Medicine; Referring Provider Family Medicine; Visit Provider Family Medicine
DX: E03.9 Hypothyroidism, unspecified (principal); Z13.220 Encounter for screening for lipoid disorders; Z79.890 Hormone replacement therapy; Z13.1 Encounter for screening for diabetes mellitus
CPT/HCPCS: 36415; 80053; 80061; 82728; 83036; 84443; 85025

== ENCOUNTER → 2021-10-05 15:14 | Outpatient (CLI) | payer BC, SELFPAY | PROVIDERS: Family Provider Physical Therapist; PCP Family Medicine; Referring Provider Family Medicine; Visit Provider Family Medicine | DX: R23.2 Flushing (principal); R42 Dizziness and giddiness; R00.1 Bradycardia, unspecified | CPT/HCPCS: 93242 ==

== ENCOUNTER → 2021-11-13 08:56 | Outpatient (CLI) | payer BC, SELFPAY ==
--- NOTE | 2021-11-13 08:57 | DI.ECHO.S_ITS ---
[facility]---------+ [facility] +---------+ : : [address] [place] : : : : [id number] : : : : Phone: [phone] Echocardiogram Report + + :Name: VANNESA AMAYA Study Date: 11/13/2021 Height: 63 in : :[facility] ReadingLocation: Weight: 130 lb : : Gender: Female BSA: 1.6 m2 : :: 1960 Age: 61 yrs BP: 121/74 mmHg: :Reason For Study: LIGHTHEADEDNESS, BRADYCARDIA : :Ordering Physician: BJ, : :MAREK Performed By: Orquidea Sanchez : :Referring: MAREK LORENZO : + + Interpretation Summary Normal left ventricle size with ejection fraction 60-65%. Mild aortic valve sclerosis. Mild mitral regurgitation. Mild tricuspid regurgitation. Procedure: A two-dimensional transthoracic echocardiogram with color flow and Doppler was performed. The study quality was technically adequate. There is no prior echocardiogram noted for this patient. The patient was in sinus bradycardia with heart rates between 46-58 bpm during the exam. Left Ventricle: The left ventricle is normal in size and wall thickness. The ejection fraction is estimated to be 60-65%. There are no focal wall motion abnormalities. Right Ventricle: The right ventricle is normal in size and function. Atria: The left atrial size is normal. Right atrial size is normal. There is no Doppler evidence for an interatrial shunt. Mitral Valve: The mitral valve is normal in structure and function. There is mild mitral regurgitation. Aortic Valve: The aortic valve is trileaflet. The aortic valve opens well. There is mild aortic valve sclerosis. There is no aortic valve stenosis. There is trace aortic regurgitation. Tricuspid Valve: The tricuspid valve is normal in structure and function. There is mild tricuspid regurgitation. The right ventricular systolic pressure is estimated to be at least 26 mmHg based on an estimated right atrial pressure of 8 mm Hg. Pulmonic Valve: The pulmonic valve leaflets are thin and pliable; valve motion is normal. There is no pulmonic valvular regurgitation. Great Vessels: The aortic root is normal size. The dimensions of the ascending aorta are normal. The IVC is dilated (diameter is greater than 2.1 cm) yet it collapses greater than 50% with a sniff. This suggests a right atrial pressure of 8 mm Hg. Pericardium/ Pleura There is no pericardial effusion. There is no pleural effusion. MMode/2D Measurements & Calculations LVIDd: 4.8 cm LVOT diam: 2.0 cm LVIDs: 3.1 cm Ao root diam: 3.3 cm FS: 36.1 % asc Aorta Diam: 3.4 cm IVSd: 0.73 cm Ao Arch Diam (Prox Trans): 2.6 cm LVPWd: 0.67 cm LV orta. diameter/BSA (cm/m^2): 3.0 LV sys. diameter/BSA (cm/m^2): 1.9 LA A2 area: 18.0 cm2 RA long axis: 4.8 cm LA A4 area: 14.8 cm2 RA area: 14.3 cm2 LA length (vol): 4.4 cm RA vol: 36.3 ml LA vol: 51.8 ml RA : 22.5 ml/m2 LA vol index: 32.2 ml/m2 IVC diam: 2.1 cm RVD1 (basal): 3.8 cm RVD2 (mid): 3.1 cm TAPSE: 1.7 cm Doppler Measurements & Calculations Ao V2 max: 145.2 cm/sec LVOT Max Serge: 107.1 cm/sec Ao V2 mean: 92.0 cm/sec LV V1 max P.6 mmHg Ao max P.4 mmHg LV V1 VTI: 23.9 cm Ao mean P.0 mmHg NOMAN(I,D): 2.4 cm2 Ao V2 VTI: 31.8 cm NOMAN(V,D): 2.4 cm2 sev ratio: 0.75 NOMAN indexed to BSA (cm^2/m^2): 1.5 MV E max serge: 75.5 cm/sec TR max serge: 210.0 cm/sec MV A max serge: 85.4 cm/sec TR max P.6 mmHg MV E/A: 0.88 PA V2 max: 76.3 cm/sec Med Peak E' Serge: 5.7 cm/sec PA V2 mean: 52.3 cm/sec E/E' med: 13.3 PA mean P.3 mmHg Lat Peak E' Serge: 5.8 cm/sec PA pr(Accel): 27.6 mmHg E/E' lat: 12.9 E/e' average: 13.1 MV dec time: 0.23 sec SV(LVOT): 77.6 ml Electronically signed by: Boni Figueroa on Reading Physician:11/14/2021 09:47 AM
== END ==
PROVIDERS: Family Provider Physical Therapist; PCP Family Medicine; Referring Provider Family Medicine; Visit Provider Family Medicine
DX: I08.3 Combined rheumatic disorders of mitral, aortic and tricuspid valves (principal); R42 Dizziness and giddiness; R00.1 Bradycardia, unspecified
CPT/HCPCS: 93306

== ENCOUNTER → 2022-07-03 11:49 | Outpatient (CLI) | payer BC, SELFPAY ==
--- NOTE | 2022-07-03 11:50 | DI.RAD.S_ITS ---
PROCEDURE: XR CHEST 2V INDICATIONS: Cough since having flu in May TECHNIQUE: 2 views of the chest were acquired. COMPARISON: None. FINDINGS: Surgical changes and devices: None. Lungs and pleura: Lungs are clear. No pleural effusions or pneumothorax. Mediastinum: Mediastinal contours are normal. Heart size is normal. Bones and chest wall: No suspicious bony abnormalities. Soft tissues appear unremarkable. IMPRESSION: No acute cardiopulmonary abnormality. Dictated by: Kane Chau M.D. on 07/03/2022 at 13:26 Approved by: Kane Chau M.D. on 07/03/2022 at 13:26
== END ==
PROVIDERS: PCP Family Medicine; Referring Provider Physician Assistant; Visit Provider Physician Assistant
DX: R05.3 Chronic cough (principal)
CPT/HCPCS: 71046

== ENCOUNTER → 2022-07-05 08:25 | Outpatient (CLI) | payer BC, SELFPAY ==
--- NOTE | 2022-07-05 08:26 | DI.RAD.S_ITS ---
PROCEDURE: XR LUMBAR SPINE MIN 4V INDICATIONS: Ongoing low back pain; minimal relief with PT TECHNIQUE: 5 views of the lumbar spine were acquired, including bilateral oblique views. COMPARISON: None. FINDINGS: Bones: 5 nonrib-bearing vertebrae are present. There is normal bony alignment. Small vertebral body osteophytes. Disc space height loss at L4-L5 and L5-S1. Lower lumbar spine facet joint hypertrophy. Findings not significantly changed compared to 2020. No vertebral body compression fractures. No suspicious bony lesions. Soft tissues: Overlying bowel gas pattern is normal. No suspicious soft tissue calcifications. Oblique images: No pars defects. IMPRESSION: Moderate DDD at L4-L5 and L5-S1. MRI could be considered for further evaluation. Dictated by: Kane Chau M.D. on 07/05/2022 at 13:24 Approved by: Kane Chau M.D. on 07/05/2022 at 13:27
== END ==
PROVIDERS: PCP Family Medicine; Referring Provider Physician Assistant; Visit Provider Physician Assistant
DX: M51.36 Other intervertebral disc degeneration, lumbar region (principal); M54.9 Dorsalgia, unspecified; M51.37 Other intervertebral disc degeneration, lumbosacral region
CPT/HCPCS: 72110

== ENCOUNTER → 2022-12-06 08:46 | Outpatient (CLI) | payer BC, SELFPAY ==
[2022-12-06 11:16] LABS: Add Manual Diff / Slide Review NO; Basophils Absolute Auto 0 /uL (0-100); Basophils Percent Auto 0.6 % (0-2); Eosinophils Absolute Auto 0 /uL (0-450); Eosinophils Percent Auto 0.8 % (2-4); Hematocrit 37.4 % (36-46); Hemoglobin 12.9 g/dL (12.0-16.0); Lymphocytes Absolute Auto 800 /uL (1100-4500); Lymphocytes Percent Auto 16.1 % (25-40); Mean Corpuscular HGB Conc 34.4 % (30-36); Mean Corpuscular Hemoglobin 31.3 PG (26-34); Monocytes Absolute Auto 300 /uL (0-900); Monocytes Percent Auto 5.2 % (3-14); Neutrophils Absolute Auto 3900 /uL (1500-7000); Neutrophils Percent Auto 77.3 % (50-75); Platelet Count 246 X10^3/uL (150-400); Red Blood Cell Count 4.11 X10^6/uL (4.0-5.2); Red Cell Distribution Width 13.4 % (11.6-14.8)
[2022-12-06 11:29] LABS: Alanine Aminotransferase 21 IU/L (<35); Albumin 4.7 g/dL (3.5-5.0); Albumin Globulin Ratio 1.7 (1.0-2.8); Alkaline Phosphatase 80 U/L (38-126); Aspartate Aminotransferase 32 IU/L (14-36); Bilirubin Total 0.4 mg/dL (0.2-1.3); Blood Urea Nitrogen 12 mg/dL (7-17); Calcium 9.5 mg/dL (8.4-10.2); Carbon Dioxide 32 mmol/L (22-32); Chloride 100 mmol/L (98-107); Cholesterol 299 mg/dL (140-199); Estimated Glomerular Filt Rate > 60 mL/min (>60); Globulin 2.7 g/dL (1.7-4.1); Glucose 100 mg/dL (80-110); HEMOLYSIS < 15 (0-50); Potassium 4.3 mmol/L (3.4-5.1); Sodium 137 mmol/L (137-145); Total Protein 7.4 g/dL (6.3-8.2); Triglycerides 59 mg/dL (35-150)
[2022-12-06 11:40] LABS: HDL Cholesterol 136 mg/dL (40-60); LDL Cholesterol Calculated 151 mg/dL (<100)
[2022-12-06 11:54] LABS: TSH w/ Reflex to FT4 0.86 uIU/mL (0.47-4.68)
== END ==
PROVIDERS: PCP Family Medicine; Referring Provider Physician Assistant; Visit Provider Physician Assistant
DX: E03.9 Hypothyroidism, unspecified (principal); E78.5 Hyperlipidemia, unspecified; K21.9 Gastro-esophageal reflux disease without esophagitis
CPT/HCPCS: 36415; 80053; 80061; 84443; 85025

== ENCOUNTER → 2023-11-11 10:05 | Outpatient (CLI) | payer BC, SELFPAY ==
--- NOTE | 2023-11-11 10:43 | EKG_ITS ---
[address] [address] Test Date: 2023-11-11 Pat Name: Mary Oropeza Department: [facility] Room: Gender: Female [employer]: GOKUL : 1960 Requested By: Order Number: [id number] Reading MD: Taqueria Gutierrez Measurements Intervals [place] Rate: 50 P: 69 FL: 166 QRS: 16 QRSD: 78 T: 53 QT: 444 QTc: 404 Interpretive Statements Sinus bradycardia Low voltage QRS Electronically Signed On 11-11-2023 16:37:34 PDT by Taqueria Gutierrez
[2023-11-11 11:22] LABS: Add Manual Diff / Slide Review NO; Basophils Absolute Auto 0 /uL (0-100); Basophils Percent Auto 0.8 % (0-2); Eosinophils Absolute Auto 200 /uL (0-450); Eosinophils Percent Auto 4.4 % (2-4); Hemoglobin 12.4 g/dL (12.0-16.0); Lymphocytes Absolute Auto 1100 /uL (1100-4500); Lymphocytes Percent Auto 25.4 % (25-40); Mean Corpuscular HGB Conc 33.6 % (30-36); Mean Corpuscular Hemoglobin 31.1 PG (26-34); Mean Corpuscular Volume 92.6 fL (80-100); Monocytes Absolute Auto 300 /uL (0-900); Monocytes Percent Auto 7.4 % (3-14); Neutrophils Absolute Auto 2600 /uL (1500-7000); Platelet Count 253 X10^3/uL (150-400); Red Cell Distribution Width 13.1 % (11.6-14.8); White Blood Cell Count 4.2 X10^3/uL (4.5-11.0)
[2023-11-11 11:41] LABS: Hemoglobin A1C% w Est Avg Glu 5.4 % (4.0-6.0)
[2023-11-11 11:44] LABS: BUN Creatinine Ratio 15.6 (6-22); Blood Urea Nitrogen 10 mg/dL (7-17); Calcium 9.3 mg/dL (8.4-10.2); Carbon Dioxide 32 mmol/L (22-32); Chloride 104 mmol/L (98-107); Estimated Glomerular Filt Rate > 60 mL/min (>60); Glucose 96 mg/dL (80-110); HEMOLYSIS < 15 (0-50); Potassium 5.3 mmol/L (3.4-5.1); Sodium 137 mmol/L (137-145)
[2023-11-11 11:59] LABS: Vitamin D 25 Hydroxy (D3) 29.4 ng/mL (30.0-100.0)
[2023-11-11 12:02] LABS: Prealbumin 31.6 mg/dL (17.6-36.0)
[2023-11-11 12:55] LABS: Albumin 4.3 g/dL (3.5-5.0)
== END ==
PROVIDERS: PCP Family Medicine; Referring Provider Orthopaedic Surgery Adult Reconstructive Orthopaedic Surgery; Visit Provider Orthopaedic Surgery Adult Reconstructive Orthopaedic Surgery
DX: Z01.818 Encounter for other preprocedural examination (principal); R77.0 Abnormality of albumin; E55.9 Vitamin D deficiency, unspecified; R73.9 Hyperglycemia, unspecified; Z01.812 Encounter for preprocedural laboratory examination
CPT/HCPCS: 36415; 80048; 82040; 82306; 83036; 84134; 85025; 93005

== ENCOUNTER → 2024-01-23 10:49 | Outpatient (CLI) | payer MEDICARE, OTHER, SELFPAY ==
--- NOTE | 2024-01-23 10:52 | DI.RAD.S_ITS ---
PROCEDURE: XR DEXA AXIAL SKELETON INDICATIONS: ASYMPTOMATIC MENOPAUSAL STATE COMPARISON: None. FINDINGS: Lumbar Spine: Bone mineral density 0.880 g/cm2, T score -1.5. Left Hip: Bone mineral density 0.764 g/cm2, T score -1.5. Left Femoral Neck: Bone mineral density 0.704 g/cm2, T score -1.3. Right Hip: Bone mineral density 0.791 g/cm2, T score -1.2. Right Femoral Neck: Bone mineral density 0.695 g/cm2, T score -1.4. Fracture Risk Calculation (when applicable): 10-year fracture risk of a major osteoporotic fracture 16% and of a hip fracture 0.9% without fracture compared to 26% 1.5% with prior fracture.. (T score greater or equal to -1.0 to: NORMAL) (T score from -1.1 to -2.4: OSTEOPENIA) (T score less than or equal to -2.5: OSTEOPOROSIS) IMPRESSION: [id number] osteopenia. Follow-up guidelines as follows: Osteoporosis: Consider a repeat DEXA and Vertebral Fracture Assessment (VFA) exam in 2 years or sooner if medically necessary, to reassess this patient's status. Osteopenia: Consider a repeat DEXA in 2-3 years to reassess this patient's status, or if there is a new clinical indication. Normal: Consider a repeat DEXA in 5 years or sooner, or if there is a new clinical indication. All treatment decisions require clinical judgment and consideration of individual patient factors, including patient preferences, comorbidities, previous drug use, risk factors not captured in the FRAX model (e.g., frailty, falls, vitamin D deficiency, increased bone turnover, interval significant decline in bone density ) and possible under- or over-estimation of fracture risk by FRAX. In addition, the NOF Guide recommends that FDA-approved medical therapies be considered in postmenopausal women and men age >= 50 years with a: * Hip or vertebral (clinical or morphometric) fracture * T-score of <=-2.5 at the spine or hip * Ten-year fracture probability by FRAX of >= 3% for hip fracture or >=20% for major osteoporotic fracture. People with diagnosed cases of osteoporosis or at high risk for fracture should have regular bone mineral density tests. For patients eligible for Medicare, routine testing is allowed once every 2 years. The testing frequency can be increased to one year for patients who have rapidly progressing disease, those who are receiving or discontinuing medical therapy to restore bone mass, or have additional risk factors. Dictated by: Lydia Benitez M.D. on 01/24/2024 at 10:49 Approved by: Lydia Benitez M.D. on 01/24/2024 at 10:52
== END ==
PROVIDERS: PCP Family Medicine; Referring Provider Family Medicine; Visit Provider Family Medicine
DX: M85.89 Other specified disorders of bone density and structure, multiple sites (principal); Z78.0 Asymptomatic menopausal state
CPT/HCPCS: 77080

== ENCOUNTER → 2024-02-10 12:36 | Outpatient (CLI) | payer MEDICARE, OTHER, SELFPAY ==
--- NOTE | 2024-02-10 12:38 | DI.US.S_ITS ---
PROCEDURE: US PERIPH VENOUS LOW EXTREM LT INDICATIONS: PAIN IN LEFT CALF TECHNIQUE: Real-time imaging, as well as color and pulse Doppler interrogation, were performed of the lower extremity deep veins from the inguinal ligament to the popliteal fossa, with documentation of the visualized calf veins. COMPARISON: None. FINDINGS: The common femoral, femoral, popliteal, and the visualized calf veins are normally compressible, and free of intraluminal thrombus. Color and pulse Doppler demonstrate normal phasic intraluminal flow. There is normal augmentation response to distal compression maneuver. IMPRESSION: No findings of lower extremity deep venous thrombosis. Dictated by: Chito Mike M.D. on 02/10/2024 at 13:07 Approved by: Chito Mike M.D. on 02/10/2024 at 13:07
== END ==
LOC: US 12:37
PROVIDERS: PCP Family Medicine; Referring Provider Orthopaedic Surgery Adult Reconstructive Orthopaedic Surgery; Visit Provider Orthopaedic Surgery Adult Reconstructive Orthopaedic Surgery
DX: M79.662 Pain in left lower leg (principal)
CPT/HCPCS: 93971

== ENCOUNTER → 2024-06-24 09:19 | Day surgery (SDC) | payer MEDICARE, OTHER, SELFPAY ==
--- NOTE | 2024-06-24 | PATH_ITS ---
[facility] Accession Number: [id number] No. of containers..01 Tissue . 01 Material submitted: . esophagus, E-G Junction - GE JUNCTION . 01 Diagnosis: GE JUNCTION: Gastroesophageal junction mucosa with mild chronic inflammation. No goblet cell metaplasia, dysplasia, or malignancy identified. [facility] 06/29/20241208 Local . 01 Electronically signed: . Uziel Gaitan MD, Pathologist NPI- [id number] . 01 Gross description: . Received in formalin with two patient identifiers and 1. GE junction biopsy, are two overton soft tissue fragments 0.2 to 0.3 cm in greatest dimension. Submitted in cassette A1. ([id number]) /ELISE 06/29/20241208 Local . 01 Microscopic: . GE JUNCTION: An ABPAS stain was performed to evaluate for goblet cell metaplasia and is negative. The control stains appropriately. . 01 Pathologist provided ICD-10: K20.90 . 01 CPT . 190510, [id number] Specimen Comment: A courtesy copy of this report has been sent to [phone] Performed at: [address] [id number] MD Uziel Gaitan MD Phone: [phone]
[2024-06-24 09:48] VITALS: BP 115/63; PULSE 52; RESP 16; TEMP 36.8; O2SAT 100
[2024-06-24] MEDS: LACTATED RINGERS 1,000 ML 42 ML IV (09:51)
--- NOTE | 2024-06-24 09:56 | PM.PREOP ---
Pre-operative Note COVID-19 COVID-19 status: Not tested Interval Note History & Physical reviewed/Exam performed by Physician: Yes Changes to H&P: No ASA Class (for procedural sedation): III
--- NOTE | 2024-06-24 09:56 | PM.OP.EC ---
Operative Date/Time/Diagnoses Date of procedure: 06/24/24 Pre-op diagnosis: GE reflux and family history of colon cancer Procedure & Clinicians Study performed: EGD and colonoscopy Indications: GE reflux with worsening symptoms and family history of colon cancer Surgeon: Mitchell Rios Procedure Notes Procedure in detail: After informed consent was obtained the patient was placed in left lateral decubitus position. The video upper scope was placed into the oropharynx and with the patient's help swallowed into the esophagus. The mucosa was carefully examined. On withdrawal retroflexed view the GE junction was performed. The scope was removed. The patient tolerated procedure well. The patient was then turned to the colonoscope substituted. The scope was introduced the rectum and easily passed cecum. On slow withdrawal mucosa was carefully examined. The scope was removed. The patient tolerated procedure well. Blood loss none Complications none Sedation mac Findings EGD 1. Somewhat loose lower esophageal sphincter. No clear hiatal hernia. 2. 1 cm abnormal tissue at the GE junction possibly consistent with Barretts esophagus biopsies taken 3. Normal stomach 4. Normal duodenal bulb and sweep Will be in touch regarding possibility of Barretts esophagus. (See photos) if so she will need follow-up EGD in 3 years Colonoscopy One. Normal colonoscopy to cecum. Need for follow-up colonoscopy in 5 years
[2024-06-24] MEDS: ONDANSETRON 4 MG/2 ML INJ IV (10:02)
[2024-06-24 10:54] VITALS: BP 83/37; PULSE 57; RESP 14; TEMP 36.6; O2SAT 95
[2024-06-24 10:58] VITALS: BP 83/42; PULSE 57; RESP 14; O2SAT 95
[2024-06-24 11:04] VITALS: BP 92/53; PULSE 71; RESP 14; O2SAT 97
[2024-06-24 11:06] VITALS: BP 94/64; PULSE 72; RESP 14; TEMP 36.6; O2SAT 97
== END | disposition home or self-care (01) ==
PROVIDERS: PCP Family Medicine; Referring Provider Internal Medicine Gastroenterology; Visit Provider Internal Medicine Gastroenterology
PROC: 0DJ08ZZ Inspection of Upper Intestinal Tract, Via Natural or Artificial Opening Endoscopic (ICD-10-PCS; CPT 43239; principal; 2024-06-24 10:30)
PROC: 0DJD8ZZ Inspection of Lower Intestinal Tract, Via Natural or Artificial Opening Endoscopic (ICD-10-PCS; CPT 45378; 2024-06-24 10:30)
DX: Z12.11 Encounter for screening for malignant neoplasm of colon (principal); Z80.0 Family history of malignant neoplasm of digestive organs; K21.9 Gastro-esophageal reflux disease without esophagitis; K29.50 Unspecified chronic gastritis without bleeding
CPT/HCPCS: 43239; G0105; J2405; J2704

== ENCOUNTER → 2024-10-01 15:17 | Outpatient (CLI) | payer MEDICARE, OTHER, SELFPAY ==
--- NOTE | 2024-10-01 15:20 | DI.RAD.S_ITS ---
PROCEDURE: XR CHEST 2V INDICATIONS: CHEST PAIN TECHNIQUE: 2 views of the chest were acquired. COMPARISON: [facility], CR, XR CHEST 2V, 07/03/2022, 11:51. FINDINGS: Surgical changes and devices: None. Lungs and pleura: Lungs are clear. No pleural effusions or pneumothorax. Mediastinum: Mediastinal contours are normal. Heart size is normal. Bones and chest wall: No suspicious bony abnormalities. Soft tissues appear unremarkable. IMPRESSION: No acute cardiopulmonary abnormality is seen. Dictated by: Vicente Hickman M.D. on 10/02/2024 at 13:07 Approved by: Vicente Hickman M.D. on 10/02/2024 at 13:07
== END ==
PROVIDERS: PCP Family Medicine; Referring Provider Family Medicine; Visit Provider Family Medicine
DX: R07.9 Chest pain, unspecified (principal)
CPT/HCPCS: 71046

== ENCOUNTER → 2024-10-13 08:05 | Outpatient (CLI) | payer MEDICARE, OTHER, SELFPAY ==
--- NOTE | 2024-10-13 17:15 | DI.NM.S_ITS ---
DATE OF SERVICE: 10/13/2024 EXERCISE STRESS TEST INDICATIONS: Chest pain. CARDIAC STRESS: The patient underwent exercise stress test under the supervision of an attending staff using standard Joel protocol. She walked on Joel protocol for 10 minutes and 43 seconds, achieved maximum heart rate of 160, which was 103% of target heart rate. Resting blood pressure 115/70 and peak blood pressure 162/80. Baseline rhythm sinus bradycardia, heart rate in 50s. During stress, no convincing ischemic changes seen. No significant arrhythmias. No chest pain. Had some shortness of breath. Normal recovery. CONCLUSION: Exercise stress test is negative for inducible ischemia. Excellent exercise tolerance. JACOB -56%. 9.9 METS of workload. No ischemic changes. No anginal symptoms. No significant arrhythmias. Overall, low-risk exercise stress test. Johnna Mary - ROSALIA/sharon/MILY doc#: [id number]/job#: [id number] dd: 10/13/2024 16:52:00 dt: 10/13/2024 17:05:00 DICTATING /COPIES TO: Justyna Figueroa MD COPIES MNE: EDUAR;
== END ==
PROVIDERS: PCP Family Medicine; Referring Provider Family Medicine; Visit Provider Family Medicine
DX: R07.9 Chest pain, unspecified (principal)
CPT/HCPCS: 93017

== ENCOUNTER → 2025-02-01 07:07 | Outpatient (CLI) | payer MEDICARE, OTHER, SELFPAY ==
--- NOTE | 2025-02-01 07:27 | DI.MRI.S_ITS ---
PROCEDURE: MR SHOULDER RT WO CON INDICATIONS: r/o RTC tear,pain TECHNIQUE: Noncontrast oblique coronal T2 fast spin echo with fat saturation, oblique sagittal T1 spin echo and T2 fast spin echo with fat saturation, axial T1 spin echo and T2 fast spin echo with fat saturation through the shoulder. COMPARISON: None. FINDINGS: Quality: Adequate. Rotator cuff tendons: Multifocal articular sided and bursal sided supraspinatus and infraspinatus tendon tearing at the insertional and non insertional fibers greater than 50% thickness. Approximately 50% thickness insertional interstitial tearing of the subscapularis tendon. Teres minor tendon is unremarkable. Long head of biceps tendon: Status post tenodesis. Muscles: No disproportionate fatty degeneration of the rotator cuff musculature. Acromioclavicular joint: Advanced acromioclavicular arthropathy. Glenohumeral joint: Labrum: Diffuse degeneration Cartilage: Non uniform full-thickness cartilage loss in the central glenoid and along the superomedial humeral head. Large humeral head marginal osteophytes. Fluid: No effusion. Capsule: No pericapsular inflammation or scarring. Alignment: No dislocation. Bursa: Subacromial/subdeltoid bursa: Trace fluid Subcoracoid bursa: Nondistended. Bones: No fracture. IMPRESSION: High-grade partial-thickness supraspinatus and infraspinatus tendon tearing. Intermediate-grade partial-thickness subscapularis tendon tear. Acromioclavicular and glenohumeral osteoarthritis. Mild subacromial/subdeltoid bursitis . Dictated by: Ferny Martinez M.D. on 02/01/2025 at 10:59 Approved by: Ferny Martinez M.D. on 02/01/2025 at 11:13
== END ==
LOC: MRI 07:09
PROVIDERS: PCP Family Medicine; Referring Provider Orthopaedic Surgery; Visit Provider Orthopaedic Surgery
DX: M75.111 Incomplete rotator cuff tear or rupture of right shoulder, not specified as traumatic (principal); M19.011 Primary osteoarthritis, right shoulder; M25.511 Pain in right shoulder; M75.51 Bursitis of right shoulder
CPT/HCPCS: 73221

== ENCOUNTER → 2025-04-24 07:12 | Outpatient (CLI) | payer MEDICARE, OTHER, SELFPAY ==
--- NOTE | 2025-04-24 07:13 | DI.MRI.S_ITS ---
PROCEDURE: MR SHOULDER LT WO CON INDICATIONS: eval RTC TECHNIQUE: Noncontrast oblique coronal T2 fast spin echo with fat saturation, oblique sagittal T1 spin echo and T2 fast spin echo with fat saturation, axial T1 spin echo and T2 fast spin echo with fat saturation through the shoulder. COMPARISON: [facility], MR, MR SHOULDER RT WO CON, 02/01/2025, 7:14. [facility], CR, XR SHOULDER LT 2+ VIEWS, 01/27/2025, 10:37. FINDINGS: Image quality: Excellent. Rotator cuff: High-grade partial articular sided tearing of the supraspinatus tendon at the distal insertion superimposed on chronic tendinosis. Moderate infraspinatus tendinosis with superimposed focal low-grade partial bursal sided tearing at the distal insertion measuring 3 mm in anterior-posterior dimension. Teres minor tendon is intact. Mild subscapularis tendinosis. The rotator cuff musculature is normal in bulk. Bones and bursae: Prominent cystic changes are seen at the posterior superior humeral head with mild surrounding edema and fluid signal extending into the humeral neck. Findings may be related to prior surgery versus chronic distal rotator cuff tendon traction versus intraosseous ganglion or prior trauma. Full-thickness cartilage loss at the superior medial humeral head and superior glenoid. Small marginal osteophytes are present. Small glenohumeral effusion with mild synovial hypertrophy. Moderate degenerative changes at the acromioclavicular joint. Small amount of subacromial/subdeltoid bursal fluid is present. Capsule and soft tissues: Diminutive appearance of the superior labrum may be related to prior labral debridement. No acute displaced labral tear. Intra-articular portion of the biceps long head tendon is not seen, compatible with prior surgery versus chronic tendon tearing and distal retraction. Glenohumeral ligaments are intact. IMPRESSION: 1. High-grade partial articular sided tearing of the supraspinatus tendon at the distal insertion superimposed on chronic tendinosis. 2. Tendinosis and focal low-grade partial bursal sided tearing of the infraspinatus tendon at the distal insertion. 3. Mild subscapularis tendinosis. 4. Intra-articular portion of the biceps long head tendon is not well seen, likely related to prior surgery versus chronic tendon tearing and distal retraction. 5. Large areas of full-thickness cartilage loss in the glenohumeral joint. Moderate glenohumeral effusion. 6. Moderate acromioclavicular joint osteoarthrosis. Small subacromial/subdeltoid bursal effusion. Approved by: Vijay Cai M.D. on 04/26/2025 at 12:44
== END ==
LOC: MRI 07:13
PROVIDERS: PCP Family Medicine; Referring Provider Family Medicine; Visit Provider Orthopaedic Surgery
DX: M75.111 Incomplete rotator cuff tear or rupture of right shoulder, not specified as traumatic (principal); M12.812 Other specific arthropathies, not elsewhere classified, left shoulder; M25.819 Other specified joint disorders, unspecified shoulder; M25.412 Effusion, left shoulder
CPT/HCPCS: 73221